=== PATIENT | female | born 1965 | race African-American/Black ===

== ENCOUNTER 2018-02-10 12:09 | Inpatient (IN) | payer SELFPAY ==
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
[2018-02-10 13:34] LABS: HEMATOCRIT 41.8 % (32.4-45.2); HEMOGLOBIN 13.5 GM/dL (10.7-15.3); MCH 27.7 pg (25.7-33.7); MCHC 32.3 g/dl (32.0-36.0); MEAN CELL VOLUME 85.7 fl (80-96); MEAN PLT VOLUME 9.8 fl (7.5-11.1); PLATELET COUNT 176 K/MM3 (134-434); RBC 4.88 M/mm3 (3.60-5.2); RDW 15.9 % (11.6-15.6); WHITE BLOOD COUNT 11.7 K/mm3 (4.0-10.0)
[2018-02-10 13:38] LABS: URINE APPEARANCE CLEAR; URINE BILIRUBIN NEGATIVE (<2.0 mg/dL); URINE COLOR LTYELLOW; URINE GLUCOSE (UA) NEGATIVE (NEGATIVE); URINE KETONE NEGATIVE (NEGATIVE); URINE LEUK ESTERASE NEGATIVE (NEGATIVE); URINE NITRITE NEGATIVE (NEGATIVE); URINE PROTEIN NEGATIVE (NEGATIVE); URINE UROBILINOGEN NEGATIVE mg/dL (0.2-1.0)
[2018-02-10 14:06] LABS: ALBUMIN 3.8 g/dl (3.4-5.0); ALK PHOS 80 U/L (45-117); ANION GAP 6 (8-16); BILIRUBIN,TOTAL 0.4 mg/dL (0.2-1.0); BLOOD UREA NITROGEN 22 mg/dL (7-18); CALCIUM 8.8 mg/dL (8.5-10.1); CHLORIDE 103 mmol/L (98-107); CO2 28 mmol/L (21-32); CREATININE 0.7 mg/dL (0.55-1.02); GLUCOSE,RANDOM 141 mg/dL (74-106); LIPASE 92 U/L (73-393); POTASSIUM 3.9 mmol/L (3.5-5.1); SGOT/AST 23 U/L (15-37); SGPT/ALT 34 U/L (12-78); SODIUM 137 mmol/L (136-145); TOT PROT 7.8 g/dl (6.4-8.2)
[2018-02-10] MEDS ORDERED: ACETAMINOPHEN 1000 MG/100 ML VIAL (NON FORMULARY) IVPB ONE (14:32)
[2018-02-10] MEDS ORDERED: MAGNESIUM CITRATE 300 ML BOTTLE PO ONE (14:33)
[2018-02-10] MEDS ORDERED: ACETAMINOPHEN INJECTION 100 ML IVPB ONE ×2 (14:38→15:39)
[2018-02-10] MEDS ORDERED: MAGNESIUM CITRATE 300 ML BOTTLE ONE (14:39)
--- NOTE | 2018-02-10 16:36 | PDOC ---
Attending Attestation - Resident Resident Name: EdilbertoBarron - ED Attending Attestation I have performed the following: I have examined & evaluated the patient, The case was reviewed & discussed with the resident, I agree w/resident's findings & plan, Exceptions are as noted - HPI HPI: 02/10/18 17:10 52 F with chronic lower back pain on opiate pain meds presenting with constipation and lower abdominal pain x several days. Pt reports constant pain radiating from her lower abdomen to her L flank. Denies F/C. Endorses nausea without vomiting. Last BM was about 3 days ago. Pt denies dysuria or hematuria. No prior abdominal sugeries. - Physicial Exam PE: 02/10/18 17:11 "GENERAL: Awake, alert, and fully oriented, in no acute distress. HEAD: No signs of trauma EYES: PERRLA, EOMI, sclera anicteric, conjunctiva clear ENT: Auricles normal inspection, hearing grossly normal, nares patent, oropharynx clear without exudates. Moist mucosa NECK: Nontender, no stepoffs, Normal ROM, supple, no lymphadenopathy, JVD, or masses LUNGS: Breath sounds equal, clear to auscultation bilaterally. No wheezes, and no crackles HEART: Regular rate and rhythm, normal S1 and S2, no murmurs, rubs or gallops ABDOMEN: + LLQ tenderness, + L CVAT, normoactive bowel sounds. No guarding, no rebound. No masses EXTREMITIES: Normal range of motion, no edema. No clubbing or cyanosis. No cords, erythema, or tenderness NEUROLOGICAL: Cranial nerves II through XII intact. 5/5 strength and sensation in all extremities, Normal speech, normal gait, normal cerebellar function SKIN: Warm, Dry, normal turgor, no rashes or lesions noted. " - Medical Decision Making 02/10/18 17:11 52 F with LLQ pain, likely constipation related. Also with L CVAT. Will r/o pyelo. - Labs, UA, UCx - CTAP - IVF, pain control, mag citrate 02/10/18 18:02 Labs and UA wnl CT shows severe L hydroureteronephrosis with forniceal rupture. No stone visualized on CT. I suspect that pt's constipation and stool burden may be cause of ureteral obstruction. Pt also has leiomyomatous uterus. Urology Dr. Penaloza consulted. No surgical intervention at this time. Will admit to hospitalist.
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
[2018-02-10] MEDS ORDERED: DOCUSATE SODIUM 100 MG CAPSULE (FP) PO PRN (20:14)
[2018-02-10] MEDS ORDERED: SENNOSIDES 8.6MG TABLET (FP) PO PRN (20:14)
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
[2018-02-10] MEDS ORDERED: traMADol HCL 50 MG TABLET PO PRN (20:19)
[2018-02-10] MEDS: POLYETHYLENE GLYCOL 3350 119 GM BTL PO SCH (22:23)
[2018-02-10] MEDS: KETOROLAC TROMETHAMINE 15 MG/ML VIAL IVPUSH PRN (22:24)
[2018-02-11] MEDS: HEPARIN NA (PORCINE) 5,000 UNITS/ML 1ML VIAL SQ SCH ×3 (05:59→22:09)
[2018-02-11] MEDS: ACETAMINOPHEN 325 MG TABLET (FP) PO PRN ×2 (05:59→18:18)
[2018-02-11 07:45] LABS: ALBUMIN 3.2 g/dl (3.4-5.0); ANION GAP 7 (8-16); BLOOD UREA NITROGEN 17 mg/dL (7-18); CALCIUM 8.7 mg/dL (8.5-10.1); CHLORIDE 102 mmol/L (98-107); CO2 30 mmol/L (21-32); GLUCOSE,RANDOM 126 mg/dL (74-106); POTASSIUM 4.2 mmol/L (3.5-5.1); SGPT/ALT 32 U/L (12-78); SODIUM 139 mmol/L (136-145)
[2018-02-11 07:48] LABS: ALK PHOS 77 U/L (45-117); BILIRUBIN,TOTAL 0.5 mg/dL (0.2-1.0); CREATININE 0.7 mg/dL (0.55-1.02); SGOT/AST 23 U/L (15-37); TOT PROT 7.3 g/dl (6.4-8.2)
[2018-02-11 08:08] LABS: BASO % 0.2 % (0-2.0); HEMOGLOBIN 13.7 GM/dL (10.7-15.3); LYMPH % 4.4 % (8-40); MCHC 33.3 g/dl (32.0-36.0); MEAN CELL VOLUME 84.1 fl (80-96); MEAN PLT VOLUME 10.1 fl (7.5-11.1); MONO % 5.1 % (3.8-10.2); NEUT % 90.3 % (42.8-82.8); PLATELET COUNT 192 K/MM3 (134-434); RBC 4.88 M/mm3 (3.60-5.2); RDW 15.3 % (11.6-15.6); WHITE BLOOD COUNT 12.3 K/mm3 (4.0-10.0)
--- NOTE | 2018-02-11 08:49 | EKG ---
Test Reason : Blood Pressure : / mmHG Vent. Rate : 078 BPM Atrial Rate : 078 BPM P-R Int : 196 ms QRS Dur : 086 ms QT Int : 404 ms P-R-T Axes : 075 032 056 degrees QTc Int : 460 ms NORMAL SINUS RHYTHM RIGHT ATRIAL ENLARGEMENT NONSPECIFIC T WAVE ABNORMALITY PROLONGED QT ABNORMAL ECG NO PREVIOUS ECGS AVAILABLE Confirmed by GABRIEL JOSEPH MD ([id number]) on 02/11/2018 8:49:20 AM Referred By: Confirmed By:GABRIEL JOSEPH MD
[2018-02-11] MEDS ORDERED: DEXTROSE 5%-WATER 100 ML IVPB ONE (09:06)
[2018-02-11] MEDS: POLYETHYLENE GLYCOL 3350 119 GM BTL PO SCH (09:34)
[2018-02-11 09:38] LABS: INR 1.18 (0.82-1.09); PROTHROMBIN TIME (PATIENT) 13.3 SEC (9.7-13.0)
[2018-02-11 09:40] LABS: ACTIVATED PTT 30.3 SECONDS (26.9-34.4)
--- NOTE | 2018-02-11 09:48 | PN ---
<Christina Hawkins - Last Filed: 02/11/18 17:48> Physical Exam: SUBJECTIVE: Patient seen and examined at bedside. Pt states that after admission , had multiple BM's, relieving constipation. Currently, only c/o thirst and abdominal pain. Denies BARRIGA, fever, chills, SOB, or changes in urinary function. OBJECTIVE: Vital Signs Period Temp Pulse Resp BP Sys/Roland Pulse Ox Last 24 Hr 97.4 F-99.8 F 70-100 18-22 115-143/58-98 97-98 GENERAL: The patient is resting in bed. awake, alert, and fully oriented, in no acute distress. HEAD: Normal with no signs of trauma. EYES: PERRL, extraocular movements intact, sclera anicteric, conjunctiva clear. ENT: Ears normal, nares patent, oropharynx clear without exudates, moist mucous membranes. NECK: Trachea midline, supple. LUNGS: Breath sounds equal, clear to auscultation bilaterally, no wheezes, no crackles, no accessory muscle use. HEART: Regular rate and rhythm, S1, S2 without murmur, rub or gallop. ABDOMEN: Soft, obese, diffusely TTP in epigastrium, lower quadrants. normoactive bowel sounds, no guarding. +scar LLQ EXTREMITIES: 2+ pt pulses, well-perfused, no edema. NEUROLOGICAL: Cranial nerves II through XII grossly intact. Normal speech PSYCH: Normal mood, normal affect. SKIN: Warm, dry Laboratory Tests 02/11/18 02/11/18 02/11/18 06:30 06:30 06:30 WBC 12.3 H Hgb 13.7 Hct 41.0 Plt Count 192 Sodium 139 Potassium 4.2 Chloride 102 Carbon Dioxide 30 BUN 17 Creatinine 0.7 Hemoglobin A1c % Pending Active Medications Generic Name Dose Route Start Last Admin Trade Name Freq PRN Reason Stop Dose Admin Acetaminophen 650 mg 02/10/18 20:14 02/11/18 05:59 Tylenol - PO 650 mg Q4H PRN Administration FEVER Docusate Sodium 100 mg 02/10/18 20:14 Colace - PO BID PRN CONSTIPATION Heparin Sodium (Porcine) 5,000 unit 02/11/18 06:00 02/11/18 05:59 Heparin - SQ Not Given TID BEATRICE Ceftriaxone Sodium 2 gm/ 100 mls @ 100 mls/hr 02/11/18 10:00 02/11/18 09:35 Dextrose IVPB 100 mls/hr DAILY BEATRICE Administration Protocol Ketorolac Tromethamine 15 mg 02/10/18 20:14 02/10/18 22:24 Toradol Injection - IVPUSH 02/15/18 20:13 15 mg Q6H PRN Administration PAIN LEVEL 1-5 Polyethylene Glycol 17 gm 02/10/18 20:45 02/11/18 09:34 Miralax (For Daily Use) - PO Not Given DAILY BEATRICE Senna 2 tab 02/10/18 20:14 Senna - PO HS PRN CONSTIPATION Tramadol HCl 50 mg 02/10/18 20:19 Ultram - PO Q6H PRN PAIN LEVEL 6-10 Imaging 02/10/18: Abdomen flat and upright XR: constipation. no sign of free air, organomegaly, or upper abdominal calcifications of significance. the lung bases are well-aerated. there is a large heart with some prominent central vascular markings. there is a left pelvic phlebolith, L buttock granulomata and patent SI joints. the hips appear symmetrical. there is a contracted urine filled bladder and prominent uterine silhouette. 02/10/18: CTAP w/contrast: 1. moderate to severe L hydroureteronephrosis with delayed nephrogram, forniceal rupture and moderate pararenal fluid. No ureteral or urinary bladder calculus is identified 02/10/18: Transvaginal US: uterus in size 9.6x6.6x6.8cm. there are multiple small uterine masses consistent with leiomyomata. the largest fibroid measures 4.7 x 4.3 x 4.4cm and is located medially. a normal appearing endomerium of 3mm thickness is identified. the R ovary is normal in size and texture with arterial and venous flow documented to the ovary. there is a small cyst measuring 2.7 x 2.3x1.8 cm. the L ovary could not be identified. there is no evidence of adnexal masses or free pelvic fluid collections. 02/10/18: Kidney, bladder sono: 1. mild left sided hydronpehrosis. 2. perinephric fluid suggesting forniceal rupture. clinical correlation and follow- up recommended. EKG: NSR, right atrial enlargement, non-specific T wave abnormality, QTc of 460 ASSESSMENT/PLAN: 52F w/ hx of pre-DM who presents with worsening lower back pain. #worsening LBP likely 2/2 L hydroureteronephrosis, forniceal rupture vs. leiomyomatous uterus -bowel distension improved, with multiple BM's overnight . no longer constipated -s/p L nephrostomy tube- done today. Dr. Penaloza -ROUGHENER consult: Dr. Domínguez, message left with service -continue to monitor s/p tube placement. this evening with fever, tachy - cx drawn, IV tylenolx 1 given. -pain control: tramadol 50mg PO q6h PRN, toradol 15mg IVP q6h -Tylenol 650mg PO q4h PRN for fever #constipation-resolved -senna 2tab PO HS PRN -colace 100mg PO BID PRN -has resolved #R adnexal cyst/leiomyomatous uterus -ROUGHENER consult- Dr. Domínguez -call placed to service, message left. -likely caused obsructive, reflux uropathy #pre-diabetes/obesity -A1c 6.4% -nutrition consult #F/E/N -IV NS 100 cc/hr -continue to follow lytes -NPO , adv diet as tolerates #PPX -heparin 5000U TID #Dispo continued monitoring post-nephrostomy tube Visit type - Emergency Visit Emergency Visit: No - New Patient This patient is new to me today: Yes Date on this admission: 02/11/18 - Critical Care Critical Care patient: No <Lu Reyes - Last Filed: 02/11/18 18:02> Physical Exam: Patient is s/p left nephrostomy tube done by IR, urology was consulted
[2018-02-11] MEDS ORDERED: PATIENT'S OWN MEDICATION (NON-FORMULARY) (Glucosamine/Chondr Su A Sod [Osteo Bi-Flex Caple PO SCH (10:00)
[2018-02-11] MEDS ORDERED: CEFTRIAXONE 2 GM in DEXTROSE 5%-WATER 100 ML IVPB SCH (10:00)
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
[2018-02-11] MEDS ORDERED: SODIUM CHLORIDE 1,000 ML IV SCH ×3 (12:30→22:13)
[2018-02-11] MEDS: KETOROLAC TROMETHAMINE 15 MG/ML VIAL IVPUSH PRN (13:46)
[2018-02-11] MEDS ORDERED: ACETAMINOPHEN 1000 MG/100 ML VIAL (NON FORMULARY) IVPB ONE (17:30)
--- NOTE | 2018-02-11 18:42 | PN ---
Progress Note (short form) - Note Progress Note: Called to see a 52F w/ hx of pre-DM s/p nephrostomy this evening who became altered, shivering with a rectal temperature of 102.8 Pt had been on ceftriaxone prior to procedure and received levaquin intra-op. Pt got local anesthesia. She came on to floors and started shivering, Pt had been NPO prior to the procedure and started to receive IV fluids prior. No hx of fall or syncope. Initial vitals: 102.8, BP- 152/75mmHg, HR-110 sating on RA Blood glucose 127 Iv tylenol was ordered (Prior to pt receiving the tylenol, she pulled out her iv line and was putting her feet in the sink). She kept c/o about being thirsty and received ice chips, and said she had a headache and dizziness that was improving Pt shown to desat to 86% and was placed on NC-2L oxygen and began to sat at 95% PE: Vitals- Tmax-105 (rectal), BP sitting- 75/38, HR-134, repeat 104/39, HR-134 Gen: Obese female, restless, on NC-2L Neuro: AAOx3, able to move all limbs, no facial droop CVS: tachycardic, S1, S2, Chest: Clear to auscultation Bilat Abd: Obese, no areas of tenderness Nephrostomy tube in place draining pink colored fluid Extremities: no pedal edema Assessment: 52F w/ hx of pre-DM now s/p nephrostomy and became altered, shivering with a rectal temperature of 102.8 #Severe sepsis post nephrostomy tube insertion R/O pyelonephritis Sepsis work up stat Iv tylenol 1000g stat Bolus Iv Normal saline stat Vital signs [id number] D/W Dr Leon, who D/W Dr Reyes For ICU transfer- Dr Leon D/ W Dr Car and Pt has been accepted Iv zosyn Monitor
[2018-02-11] MEDS ORDERED: PIPERACILLIN/TAZOB 3.375 GM 3.375 GM in DEXTROSE 5%-WATER - 50 ML IVPB SCH ×2 (19:00→20:15)
[2018-02-11] MEDS ORDERED: VANCOMYCIN 1,000 MG in DEXTROSE 5%-WATER - 250 ML IVPB SCH (19:00)
--- NOTE | 2018-02-11 19:04 | HOSP ---
Subjective - Review of Symptoms Events since last encounter: Patient is accepted to the unit By Dr.Ricard Ni. Physical Examination Vital Signs: Vital Signs Temperature 97.9 F 02/11/18 16:35 Pulse Rate 98 H 02/11/18 16:35 Respiratory Rate 20 02/11/18 16:35 Blood Pressure 146/91 02/11/18 16:35 O2 Sat by Pulse Oximetry (%) 100 02/11/18 16:00 Labs: CBC, BMP 02/11/18 06:30 02/11/18 06:30
[2018-02-11 19:19] LABS: HEMOGLOBIN 12.6 GM/dL (10.7-15.3); MCHC 32.8 g/dl (32.0-36.0)
[2018-02-11 19:23] LABS: EOS % 0.2 % (0-4.5); HEMATOCRIT 38.6 % (32.4-45.2); LYMPH % 2.5 % (8-40); MCH 27.9 pg (25.7-33.7); MEAN CELL VOLUME 85.1 fl (80-96); MEAN PLT VOLUME 9.9 fl (7.5-11.1); MONO % 2.4 % (3.8-10.2); NEUT % 94.9 % (42.8-82.8); PLATELET COUNT 150 K/MM3 (134-434); RBC 4.53 M/mm3 (3.60-5.2); RDW 15.9 % (11.6-15.6); WHITE BLOOD COUNT 5.8 K/mm3 (4.0-10.0)
[2018-02-11] MEDS ORDERED: VANCOMYCIN 1 GM PREMIX - 1 GM/200 ML BAG IVPB ONE (19:30)
[2018-02-11 19:38] LABS: INR 1.38 (0.82-1.09); PROTHROMBIN TIME (PATIENT) 15.6 SEC (9.7-13.0)
[2018-02-11 19:41] LABS: ACTIVATED PTT 27.3 SECONDS (26.9-34.4)
[2018-02-11 19:52] LABS: PLATELET ESTIMATE DECREASED
[2018-02-11 20:04] LABS: ALBUMIN 2.9 g/dl (3.4-5.0); ANION GAP 10 (8-16); CHLORIDE 104 mmol/L (98-107); CO2 24 mmol/L (21-32); GLUCOSE,RANDOM 111 mg/dL (74-106); POTASSIUM 3.8 mmol/L (3.5-5.1); SODIUM 138 mmol/L (136-145)
[2018-02-11] MEDS ORDERED: SODIUM CHLORIDE 1,000 ML IV STA (20:12)
[2018-02-11] MEDS ORDERED: PIPERACILLIN/TAZOBACTAM 3.375 GM VIAL IVPB ONE (20:14)
[2018-02-11] MEDS ORDERED: DEXTROSE 5%-WATER - 50 ML IVPB ONE (20:14)
[2018-02-11 20:33] LABS: ALK PHOS 102 U/L (45-117); BILIRUBIN,TOTAL 0.8 mg/dL (0.2-1.0); BLOOD UREA NITROGEN 24 mg/dL (7-18); CALCIUM 8.3 mg/dL (8.5-10.1); SGOT/AST 24 U/L (15-37); SGPT/ALT 28 U/L (12-78); TOT PROT 6.7 g/dl (6.4-8.2)
[2018-02-11] MEDS: MEROPENEM 1 GM in DEXTROSE 5%-WATER 100 ML IVPB SCH (20:35)
[2018-02-11 21:02] LABS: ARTERIAL BLOOD GAS pH 7.45 (7.35-7.45)
[2018-02-11 21:03] LABS: ALLENS TEST POSITIVE; ARTERIAL BLD GAS O2 SATURATION 96.3 % (90-98.9); ARTERIAL BLOOD GAS BASE EXCESS 1.5 meq/l (-2-2); ARTERIAL BLOOD GAS PCO2 35.7 mmHg (35-45); ARTERIAL BLOOD GAS PO2 82.2 mmHg (80-100)
[2018-02-11 21:09] LABS: URINE APPEARANCE TURBID; URINE BILIRUBIN NEGATIVE (<2.0 mg/dL); URINE COLOR AMBER; URINE GLUCOSE (UA) 1+ (NEGATIVE); URINE KETONE TRACE (NEGATIVE); URINE NITRITE NEGATIVE (NEGATIVE); URINE UROBILINOGEN NEGATIVE mg/dL (0.2-1.0)
[2018-02-11 21:12] LABS: URINE LEUK ESTERASE 2+ (NEGATIVE); URINE PROTEIN 2+ (NEGATIVE)
[2018-02-11 21:13] LABS: URINE MUCUS RARE; YEAST FEW
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
[2018-02-11] MEDS ORDERED: ACETAMINOPHEN 1000 MG/100 ML VIAL (NON FORMULARY) IVPB PRN (21:20)
[2018-02-11] MEDS: LACTATED RINGERS SOLUTION 1,000 ML/1,000 ML INFUS.BAG IV SCH (22:03)
[2018-02-11] MEDS: MUPIROCIN 2% TOPICAL OINTMENT FOR DECOLONIZATION NS SCH (22:09)
[2018-02-11] MEDS: CHLORHEXIDINE GLUCONATE 4% CLEANSER FOR DECOLONIZATION TP SCH (22:10)
[2018-02-12] MEDS: MEROPENEM 1 GM in DEXTROSE 5%-WATER 100 ML IVPB SCH ×3 (01:11→17:40)
[2018-02-12] MEDS: HYDROmorphone HCL CARPU-JECT 1 MG/1 ML DISP.SYRIN IVPUSH PRN ×3 (01:27→21:49)
[2018-02-12] MEDS ORDERED: PIPERACILLIN/TAZOB 3.375 GM 3.375 GM in DEXTROSE 5%-WATER - 50 ML IVPB SCH (02:00)
--- NOTE | 2018-02-12 05:51 | PN ---
Physical Exam: SUBJECTIVE: Patient seen and examined at bed side in ICU Fever is trending down 100.1 this morning , no hypotension. pt still have left flank pain improved with Tylenol complain of constipation but denies any chest pain , sob , headache or light headedness. POD#1 S/P left nephrostomy with stent placement OBJECTIVE: Vital Signs Period Temp Pulse Resp BP Sys/Roland Pulse Ox Last 24 Hr 97.9 F-105.5 F 71-134 2-29 78-153/36-91 93-100 GENERAL: AAOx3 n mild distress due to left flank pain HEAD: NC/AT EYES: PERRL, EOMI sclera anicteric, conjunctiva clear. ENT:MMM, no exudates NECK: supple. LUNGS: Tachypnech , CTA B/L no wheezes, no crackles, no accessory muscle use. HEART: RRR, S1, S2 without MRG ABDOMEN: Soft, nondistended, normoactive bowel sounds, no guarding, no rebound,left CVA tenderness EXTREMITIES: 2+ pulses, warm, well-perfused, no edema. NEUROLOGICAL:no focal deficit . Normal speech, gait not observed. PSYCH: Normal mood, normal affect. SKIN: Warm, dry, normal turgor, Laboratory Results - last 24 hr 02/11/18 02/11/18 02/11/18 06:30 06:30 06:30 WBC 12.3 H RBC 4.88 Hgb 13.7 Hct 41.0 MCV 84.1 MCH 28.0 MCHC 33.3 RDW 15.3 Plt Count 192 MPV 10.1 Absolute Neuts (auto) 11.1 Total Counted Neutrophils % 90.3 H Neutrophils % (Manual) Band Neutrophils % Lymphocytes % 4.4 L Lymphocytes % (Manual) Monocytes % 5.1 Monocytes % (Manual) Eosinophils % 0.0 Basophils % 0.2 Nucleated RBC % 0 Platelet Estimate Platelet Comment PT with INR 13.30 H INR 1.18 H PTT (Actin FS) 30.3 Anticoagulation Therapy Puncture Site ABG pH ABG pCO2 at Pt Temp ABG pO2 at Pt Temp ABG HCO3 ABG O2 Sat (Measured) ABG O2 Content ABG Base Excess Bishnu Test O2 Delivery Device Oxygen Flow Rate Vent Mode Vent Rate Mechanical Rate PEEP Pressure Support Vent Sodium 139 Potassium 4.2 Chloride 102 Carbon Dioxide 30 Anion Gap 7 L BUN 17 Creatinine 0.7 Creat Clearance w eGFR > 60 POC Glucometer Random Glucose 126 H Hemoglobin A1c % Lactic Acid Calcium 8.7 Total Bilirubin 0.5 D AST 23 ALT 32 Alkaline Phosphatase 77 Total Protein 7.3 Albumin 3.2 L Urine Color Urine Appearance Urine pH Ur Specific Cecil Urine Protein Urine Glucose (UA) Urine Ketones Urine Blood Urine Nitrite Urine Bilirubin Urine Urobilinogen Ur Leukocyte Esterase Urine WBC (Auto) Urine RBC (Auto) Urine Mucus Urine Yeast Blood Type Antibody Screen 02/11/18 02/11/18 02/11/18 06:30 06:30 08:56 WBC RBC Hgb Hct MCV MCH MCHC RDW Plt Count MPV Absolute Neuts (auto) Total Counted Neutrophils % Neutrophils % (Manual) Band Neutrophils % Lymphocytes % Lymphocytes % (Manual) Monocytes % Monocytes % (Manual) Eosinophils % Basophils % Nucleated RBC % Platelet Estimate Platelet Comment PT with INR INR PTT (Actin FS) Anticoagulation Therapy Puncture Site ABG pH ABG pCO2 at Pt Temp ABG pO2 at Pt Temp ABG HCO3 ABG O2 Sat (Measured) ABG O2 Content ABG Base Excess Bishnu Test O2 Delivery Device Oxygen Flow Rate Vent Mode Vent Rate Mechanical Rate PEEP Pressure Support Vent Sodium Potassium Chloride Carbon Dioxide Anion Gap BUN Creatinine Creat Clearance w eGFR POC Glucometer Random Glucose Hemoglobin A1c % 6.4 H Lactic Acid Calcium Total Bilirubin AST ALT Alkaline Phosphatase Total Protein Albumin Urine Color Urine Appearance Urine pH Ur Specific Cecil Urine Protein Urine Glucose (UA) Urine Ketones Urine Blood Urine Nitrite Urine Bilirubin Urine Urobilinogen Ur Leukocyte Esterase Urine WBC (Auto) Urine RBC (Auto) Urine Mucus Urine Yeast Blood Type O POSITIVE O POSITIVE Antibody Screen Negative 02/11/18 02/11/18 02/11/18 17:56 18:00 18:00 WBC 5.8 D RBC 4.53 Hgb 12.6 Hct 38.6 MCV 85.1 MCH 27.9 MCHC 32.8 RDW 15.9 H Plt Count 150 D MPV 9.9 Absolute Neuts (auto) 5.6 Total Counted 100 Neutrophils % 94.9 H Neutrophils % (Manual) 79.0 Band Neutrophils % 17.0 Lymphocytes % 2.5 L D Lymphocytes % (Manual) 3.0 L Monocytes % 2.4 L Monocytes % (Manual) 1 L Eosinophils % 0.2 D Basophils % 0.0 Nucleated RBC % 0 Platelet Estimate Decreased Platelet Comment No clumping noted PT with INR 15.60 H INR 1.38 H PTT (Actin FS) 27.3 Anticoagulation Therapy Puncture Site ABG pH ABG pCO2 at Pt Temp ABG pO2 at Pt Temp ABG HCO3 ABG O2 Sat (Measured) ABG O2 Content ABG Base Excess Bishnu Test O2 Delivery Device Oxygen Flow Rate Vent Mode Vent Rate Mechanical Rate PEEP Pressure Support Vent Sodium Potassium Chloride Carbon Dioxide Anion Gap BUN Creatinine Creat Clearance w eGFR POC Glucometer 127 Random Glucose Hemoglobin A1c % Lactic Acid Calcium Total Bilirubin AST ALT Alkaline Phosphatase Total Protein Albumin Urine Color Urine Appearance Urine pH Ur Specific Cecil Urine Protein Urine Glucose (UA) Urine Ketones Urine Blood Urine Nitrite Urine Bilirubin Urine Urobilinogen Ur Leukocyte Esterase Urine WBC (Auto) Urine RBC (Auto) Urine Mucus Urine Yeast Blood Type Antibody Screen 02/11/18 02/11/18 02/11/18 18:00 18:00 18:43 WBC RBC Hgb Hct MCV MCH MCHC RDW Plt Count MPV Absolute Neuts (auto) Total Counted Neutrophils % Neutrophils % (Manual) Band Neutrophils % Lymphocytes % Lymphocytes % (Manual) Monocytes % Monocytes % (Manual) Eosinophils % Basophils % Nucleated RBC % Platelet Estimate Platelet Comment PT with INR INR PTT (Actin FS) Anticoagulation Therapy No Result Required. Puncture Site Left brachial ABG pH 7.45 ABG pCO2 at Pt Temp 35.7 ABG pO2 at Pt Temp 82.2 ABG HCO3 24.7 ABG O2 Sat (Measured) 96.3 ABG O2 Content 16.8 ABG Base Excess 1.5 Bishnu Test Positive O2 Delivery Device Nasal Oxygen Flow Rate 3l Vent Mode No Result Required. Vent Rate No Result Required. Mechanical Rate No Result Required. PEEP 0.0 Pressure Support Vent No Result Required. Sodium 138 Potassium 3.8 Chloride 104 Carbon Dioxide 24 Anion Gap 10 BUN 24 H Creatinine 1.0 Creat Clearance w eGFR 58.00 POC Glucometer Random Glucose 111 H Hemoglobin A1c % Lactic Acid 2.6 H* Calcium 8.3 L Total Bilirubin 0.8 D AST 24 ALT 28 Alkaline Phosphatase 102 Total Protein 6.7 Albumin 2.9 L Urine Color Urine Appearance Urine pH Ur Specific Cecil Urine Protein Urine Glucose (UA) Urine Ketones Urine Blood Urine Nitrite Urine Bilirubin Urine Urobilinogen Ur Leukocyte Esterase Urine WBC (Auto) Urine RBC (Auto) Urine Mucus Urine Yeast Blood Type Antibody Screen 02/11/18 02/11/18 20:00 20:30 WBC RBC Hgb Hct MCV MCH MCHC RDW Plt Count MPV Absolute Neuts (auto) Total Counted Neutrophils % Neutrophils % (Manual) Band Neutrophils % Lymphocytes % Lymphocytes % (Manual) Monocytes % Monocytes % (Manual) Eosinophils % Basophils % Nucleated RBC % Platelet Estimate Platelet Comment PT with INR INR PTT (Actin FS) Anticoagulation Therapy Puncture Site ABG pH ABG pCO2 at Pt Temp ABG pO2 at Pt Temp ABG HCO3 ABG O2 Sat (Measured) ABG O2 Content ABG Base Excess Bishnu Test O2 Delivery Device Oxygen Flow Rate Vent Mode Vent Rate Mechanical Rate PEEP Pressure Support Vent Sodium Potassium Chloride Carbon Dioxide Anion Gap BUN Creatinine Creat Clearance w eGFR POC Glucometer Random Glucose Hemoglobin A1c % Lactic Acid 1.9 Calcium Total Bilirubin AST ALT Alkaline Phosphatase Total Protein Albumin Urine Color Rae Urine Appearance Turbid Urine pH 5.0 Ur Specific Cecil 1.033 Urine Protein 2+ H Urine Glucose (UA) 1+ H Urine Ketones Trace H Urine Blood 3+ H Urine Nitrite Negative Urine Bilirubin Negative Urine Urobilinogen Negative Ur Leukocyte Esterase 2+ H Urine WBC (Auto) 3010 Urine RBC (Auto) 1190 Urine Mucus Rare Urine Yeast Few Blood Type Antibody Screen Active Medications Generic Name Dose Route Start Last Admin Trade Name Freq PRN Reason Stop Dose Admin Acetaminophen 1,000 mg 02/11/18 21:20 Ofirmev Injection - IVPB Q6H PRN FEVER Chlorhexidine Gluconate 1 applic 02/11/18 22:00 02/11/18 22:10 Hibiclens For Decolonization - TP 1 applic HS BEATRICE Administration Heparin Sodium (Porcine) 5,000 unit 02/12/18 06:00 Heparin - SQ TID BEATRICE Hydromorphone HCl 1 mg 02/12/18 01:09 02/12/18 01:27 Dilaudid Injection - IVPUSH 1 mg Q8H PRN Administration PAIN LEVEL 7 - 10 Meropenem 1 gm/ Dextrose 100 mls @ 200 mls/hr 02/12/18 10:00 IVPB Q8H-IV BEATRICE Lactated Ringer's 1,000 ml in 1,000 mls @ 150 mls/hr 02/11/18 21:15 02/11/18 22:03 Lactated Ringers Solution IV 150 mls/hr ASDIR BEATRICE Administration Sodium Chloride 1,000 mls @ 200 mls/hr 02/11/18 22:13 Normal Saline - IV ASDIR BEATRICE Vancomycin HCl 1 gm in 200 mls @ 166.667 mls/hr 02/12/18 07:00 Vancomycin 1 Gm Premix - IVPB Q12H COUNTS INCLUDE 234 BEDS AT THE [facility] Protocol Mupirocin 1 applic 02/11/18 22:00 02/11/18 22:09 Bactroban Ointment (For Decolonization) - NS 02/16/18 21:59 1 applic BID BEATRICE Administration Microbiology 02/12/18: Urine nephrostomy tube L: UCx -pending 02/11/18: Blood cx: pending 02/11/18: Urine nephrostomy tube L: UCx - pending Imaging 02/10/18: Abdomen flat and upright XR: constipation. no sign of free air, organomegaly, or upper abdominal calcifications of significance. the lung bases are well-aerated. there is a large heart with some prominent central vascular markings. there is a left pelvic phlebolith, L buttock granulomata and patent SI joints. the hips appear symmetrical. there is a contracted urine filled bladder and prominent uterine silhouette. 02/10/18: CTAP w/contrast: 1. moderate to severe L hydroureteronephrosis with delayed nephrogram, forniceal rupture and moderate pararenal fluid. No ureteral or urinary bladder calculus is identified 02/10/18: Transvaginal US: uterus in size 9.6x6.6x6.8cm. there are multiple small uterine masses consistent with leiomyomata. the largest fibroid measures 4.7 x 4.3 x 4.4cm and is located medially. a normal appearing endomerium of 3mm thickness is identified. the R ovary is normal in size and texture with arterial and venous flow documented to the ovary. there is a small cyst measuring 2.7 x 2.3x1.8 cm. the L ovary could not be identified. there is no evidence of adnexal masses or free pelvic fluid collections. 02/10/18: Kidney, bladder sono: 1. mild left sided hydronpehrosis. 2. perinephric fluid suggesting forniceal rupture. clinical correlation and follow- up recommended. EKG: NSR, right atrial enlargement, non-specific T wave abnormality, QTc of 460 CBC, BMP 02/12/18 06:00 02/12/18 06:00 ASSESSMENT/PLAN: 52 year old female with pre deiabetic presented to the ED for left flank pain and was found to have left hydronephrosis with left ureteral obstruction and uterine fibroid , S/P left nephrostomy and was admitte to ICU for further evaluation and treatement ID -Urosepsis due to complicated UTI * presented with fever , hypotension and tachycardia * fever is trending down , BP has improved with IV fluids , still tachycardic , tachypnech * S/P Left nephrostomy with stent placement * ID on board Dr Corral recommend continue Meropenem and DC Vancomycin * Cont IV fluids NS and RL * PO Tylenol for pain and fever * Diluded IV 1 mg Q8hr PRN * F/U blood cx and urine cx Nephro - Left kidney hydonephrosis with left ureter obstruction due to uterus leiomyomata (fibroid ) S/O Nephrostomy with stent placemnet * US showed left hydronephrosis with capsule ruptured and casey renal edema * POD# 1 * Continue IV fluids * pain control * anti emetics * cont ABX as above * Urologist recommendation Dr Fernández is appreciated # GI - Constipation * last BP 3 days ago * Started Full liquid diet * Started colace and Miralax * encourage early movement * denies any blood or hemorrhoids # 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 - R adnexal cust with Leiomyomata uterus * US reviwed * Consult lead sprinkler Dr Domínguez * F/U as out pt * # Endo - Pre diabetics -Obesity * HgbA1c 6.4 , BMI 36.7 * Diabetic diet * pt educated about modified life style and diet modification * educated about loosing weight with goal of 1 pound per week * consider bariatric consult as out pt #F/E/N * LR 150 cc/hr * continue to follow lytes * full liquid diet, will advance as tolerates #PPX * heparin 5000U TID #Dispo * continued monitoring post-nephrostomy tube Visit type - Emergency Visit Emergency Visit: Yes ED Registration Date: 02/10/18 Care time: The patient presented to the Emergency Department on the above date and was hospitalized for further evaluation of their emergent condition. - New Patient This patient is new to me today: Yes Date on this admission: 02/12/18 - Critical Care Critical Care patient: Yes Total Critical Care Time (in minutes): 45 Critical Care Statement: The care of this patient involved high complexity decision making to prevent further life threatening deterioration of the patient 's condition and/or to evaluate & treat vital organ system(s) failure or risk of failure.
[2018-02-12] MEDS: HEPARIN NA (PORCINE) 5,000 UNITS/ML 1ML VIAL SQ SCH ×3 (06:11→21:50)
[2018-02-12 06:15] LABS: BASO % 0.2 % (0-2.0); EOS % 0.5 % (0-4.5); HEMATOCRIT 35.3 % (32.4-45.2); HEMOGLOBIN 11.5 GM/dL (10.7-15.3); LYMPH % 5.5 % (8-40); MCH 27.8 pg (25.7-33.7); MCHC 32.6 g/dl (32.0-36.0); MEAN CELL VOLUME 85.2 fl (80-96); MEAN PLT VOLUME 9.7 fl (7.5-11.1); MONO % 6.5 % (3.8-10.2); NEUT % 87.3 % (42.8-82.8); PLATELET COUNT 124 K/MM3 (134-434); RBC 4.14 M/mm3 (3.60-5.2); WHITE BLOOD COUNT 11.5 K/mm3 (4.0-10.0)
[2018-02-12 06:40] LABS: ANION GAP 5 (8-16); BLOOD UREA NITROGEN 17 mg/dL (7-18); CALCIUM 7.4 mg/dL (8.5-10.1); CHLORIDE 106 mmol/L (98-107); CO2 27 mmol/L (21-32); CREATININE 0.5 mg/dL (0.55-1.02); GLUCOSE,RANDOM 90 mg/dL (74-106); MAGNESIUM 2.2 mg/dL (1.8-2.4); PHOSPHOROUS 2.8 mg/dL (2.5-4.9); POTASSIUM 4.1 mmol/L (3.5-5.1); SODIUM 138 mmol/L (136-145)
[2018-02-12] MEDS ORDERED: VANCOMYCIN 1 GM PREMIX - 1 GM/200 ML BAG IVPB SCH (07:00)
--- NOTE | 2018-02-12 08:58 | PN ---
Physical Exam: SUBJECTIVE: Patient seen and examined at bedside. Yesterday evening, pt became septic after L nephrostomy tube placement. With shivering, tachycardia 110 HR, initial temp 102.8F. Cultures sent. Pt temp increased to 105.4F. IV tylenol x 1 given, NS boluses as well as IVF. Pt received dilaudid as well for pain at nephrostomy site. Today, pt tired. Still c/o pain at nephrostomy site. Otherwise states that she "feels better than yesterday." Denies [place], fever, chills, SOB, chest pain or pressure, or changes in bowel function. OBJECTIVE: Vital Signs Period Temp Pulse Resp BP Sys/Roland Pulse Ox Last 24 Hr 97.9 F-105.5 F 71-134 2-29 78-153/36-91 93-100 GENERAL: The patient is resting in bed. awake, alert, and fully oriented, in no acute distress. +mildly diaphoretic HEAD: Normal with no signs of trauma. EYES: PERRL, extraocular movements intact, sclera anicteric, conjunctiva clear. ENT: Ears normal, nares patent, oropharynx clear without exudates, moist mucous membranes. NECK: Trachea midline, supple. LUNGS: Breath sounds equal, clear to auscultation bilaterally, no wheezes, no crackles, no accessory muscle use. HEART: Regular rate and rhythm, S1, S2 without murmur, rub or gallop. ABDOMEN: Soft, diffusely TTP epigastrium, normoactive bowel sounds, no guarding. +TTP L nephrostomy site, bag changed prior to exam. without drainage. EXTREMITIES: 2+ dp pulses, warm, well-perfused, no edema. NEUROLOGICAL: Cranial nerves II through XII grossly intact. Normal speech PSYCH: Normal mood, normal affect. SKIN: Warm, dry, normal turgor Laboratory Results 02/11/18 02/12/18 02/12/18 06:30 06:00 06:00 WBC 11.5 H D Hgb 11.5 Hct 35.3 Plt Count 124 L Sodium 138 Potassium 4.1 Chloride 106 Carbon Dioxide 27 BUN 17 Creatinine 0.5 L Hemoglobin A1c % 6.4 H Microbiology 02/12/18: Urine nephrostomy tube L: UCx -pending 02/11/18: Blood cx: pending 02/11/18: Urine nephrostomy tube L: UCx - pending Imaging 02/10/18: Abdomen flat and upright XR: constipation. no sign of free air, organomegaly, or upper abdominal calcifications of significance. the lung bases are well-aerated. there is a large heart with some prominent central vascular markings. there is a left pelvic phlebolith, L buttock granulomata and patent SI joints. the hips appear symmetrical. there is a contracted urine filled bladder and prominent uterine silhouette. 02/10/18: CTAP w/contrast: 1. moderate to severe L hydroureteronephrosis with delayed nephrogram, forniceal rupture and moderate pararenal fluid. No ureteral or urinary bladder calculus is identified 02/10/18: Transvaginal US: uterus in size 9.6x6.6x6.8cm. there are multiple small uterine masses consistent with leiomyomata. the largest fibroid measures 4.7 x 4.3 x 4.4cm and is located medially. a normal appearing endomerium of 3mm thickness is identified. the R ovary is normal in size and texture with arterial and venous flow documented to the ovary. there is a small cyst measuring 2.7 x 2.3x1.8 cm. the L ovary could not be identified. there is no evidence of adnexal masses or free pelvic fluid collections. 02/10/18: Kidney, bladder sono: 1. mild left sided hydronpehrosis. 2. perinephric fluid suggesting forniceal rupture. clinical correlation and follow- up recommended. EKG: NSR, right atrial enlargement, non-specific T wave abnormality, QTc of 460 Active Medications Generic Name Dose Route Start Last Admin Trade Name Freq PRN Reason Stop Dose Admin Acetaminophen 1,000 mg 02/11/18 21:20 Ofirmev Injection - IVPB Q6H PRN FEVER Chlorhexidine Gluconate 1 applic 02/11/18 22:00 02/11/18 22:10 Hibiclens For Decolonization - TP 1 applic HS BEATRICE Administration Heparin Sodium (Porcine) 5,000 unit 02/12/18 06:00 02/12/18 06:11 Heparin - SQ 5,000 unit TID BEATRICE Administration Hydromorphone HCl 1 mg 02/12/18 01:09 02/12/18 01:27 Dilaudid Injection - IVPUSH 1 mg Q8H PRN Administration PAIN LEVEL 7 - 10 Meropenem 1 gm/ Dextrose 100 mls @ 200 mls/hr 02/12/18 10:00 IVPB Q8H-IV BEATRICE Lactated Ringer's 1,000 ml in 1,000 mls @ 150 mls/hr 02/11/18 21:15 02/11/18 22:03 Lactated Ringers Solution IV 150 mls/hr ASDIR BEATRICE Administration Vancomycin HCl 1 gm in 200 mls @ 166.667 mls/hr 02/12/18 07:00 02/12/18 06:11 Vancomycin 1 Gm Premix - IVPB 166.667 mls/hr Q12H BEATRICE Administration Protocol Mupirocin 1 applic 02/11/18 22:00 02/11/18 22:09 Bactroban Ointment (For Decolonization) - NS 02/16/18 21:59 1 applic BID BEATRICE Administration ASSESSMENT/PLAN: 52 y/o F w/ PMH of pre-DM who presents with worsening lower back pain. #worsening LBP likely 2/2 L hydroureteronephrosis, forniceal rupture vs. leiomyomatous uterus -s/p L nephrostomy tube- (PO Day1). Dr. Penaloza -AIRCRAFT MAINTENANCE MANAGER consult: Dr. Domínguez, pt will be seen. may need elective procedure as outpatient -continue to monitor s/p tube placement for any acute changes -pain control: dilaudid 1mg IVP q8h PRN -IV Tylenol 1g IVPB q6h PRN - for fever #sepsis s/p nephrostomy tube insertion -may have caused showering, bacteremia d/t instrumentation -continue meropenem 1gm q8h qd (Today is Day1 ) -vanco and rocephin have been d/c -F/u ucx - nephrostomy tube, blood cx -ID on case: Dr. Corral #constipation-resolved -senna 2tab PO HS PRN -colace 100mg PO BID PRN -has resolved #R adnexal cyst/leiomyomatous uterus -AIRCRAFT MAINTENANCE MANAGER consult- Dr. Domínguez -pt will be seen and may need outpatient procedure, or once hemodynamically stable #pre-diabetes/obesity -A1c 6.4% -nutrition consult #F/E/N -LR 150 cc/hr -continue to follow lytes -full liquid diet, will advance as tolerates #PPX -heparin 5000U TID #Dispo continued monitoring post-nephrostomy tube Visit type - Emergency Visit Emergency Visit: No - New Patient This patient is new to me today: No - Critical Care Critical Care patient: Yes Total Critical Care Time (in minutes): 44 Critical Care Statement: The care of this patient involved high complexity decision making to prevent further life threatening deterioration of the patient 's condition and/or to evaluate & treat vital organ system(s) failure or risk of failure.
[2018-02-12] MEDS ORDERED: PT OWN MED DRAWER 7, Y5N ONE ×2 (09:07→16:57)
[2018-02-12] MEDS: MUPIROCIN 2% TOPICAL OINTMENT FOR DECOLONIZATION NS SCH ×2 (09:10→22:00)
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
[2018-02-12 10:32] LABS: ALBUMIN 2.6 g/dl (3.4-5.0)
[2018-02-12] MEDS: LACTATED RINGERS SOLUTION 1,000 ML/1,000 ML INFUS.BAG IV SCH ×3 (10:42→21:58)
--- NOTE | 2018-02-12 11:11 | PN ---
Teaching Attending Note Name of Resident: Brandt Jarrell ATTENDING PHYSICIAN STATEMENT I saw and evaluated the patient. I reviewed the resident's note and discussed the case with the resident. I agree with the resident's findings and plan as documented. SUBJECTIVE: events noted s/p percutaneous nephrostomy placement yesterday she had fever to 105 and rigors and hypotension after the procedure elevated lactic acid transferred to ICU this am, much improved bp is higher with IVF no pain nephrostomy originally with milky urine, now clear d/w hospitalist last night as well OBJECTIVE: Vital Signs Period Temp Pulse Resp BP Sys/Roland Pulse Ox Last 24 Hr 97.9 F-105.5 F 71-134 2-29 78-153/36-91 93-100 cor-rrr lungs clear abd soft,nt +drain with clear urine ext no edema CBC, BMP 02/12/18 06:00 02/12/18 06:00 cultures pending Laboratory Tests 02/11/18 20:30 Ur Leukocyte Esterase 2+ H Urine WBC (Auto) 3010 Urine RBC (Auto) 1190 ASSESSMENT AND PLAN: sepsis secondary to UTI/urinary obstruction left hydronephrosis secondary to obstruction (fibroid uterus) BP improved this am continue meropenem f/u cultures d/c vancomycin over 45 minutes spent in the care of this patient Problem List - Problems (1) Sepsis Code(s): A41.9 - SEPSIS, UNSPECIFIED ORGANISM (2) UTI (urinary tract infection) Code(s): N39.0 - URINARY TRACT INFECTION, SITE NOT SPECIFIED (3) Obstructive uropathy Code(s): N13.9 - OBSTRUCTIVE AND REFLUX UROPATHY, UNSPECIFIED (4) Fibroid uterus Code(s): D25.9 - LEIOMYOMA OF UTERUS, UNSPECIFIED
--- NOTE | 2018-02-12 12:38 | PN ---
Teaching Attending Note Name of Resident: Juan Ng ATTENDING PHYSICIAN STATEMENT I saw and evaluated the patient. I reviewed the resident's note and discussed the case with the resident. I agree with the resident's findings and plan as documented. SUBJECTIVE: Pt seen and examined in the ICU. Fever curve trending down. Blood pressure improving with IVF resuscitation. Still some left flank pain but improving. OBJECTIVE: Vital Signs Period Temp Pulse Resp BP Sys/Roland Pulse Ox Last 24 Hr 97.9 F-105.5 F 71-134 2-29 78-153/36-91 93-100 Intake & Output 02/09/18 02/10/18 02/11/18 02/12/18 23:59 23:59 23:59 23:59 Intake Total 200 0 3212 Output Total 150 375 Balance 200 -150 2837 Weight 107.048 kg 107.048 kg 109.372 kg Gen: mildly tachypneic at rest Heart: RRR Lung: decreased breath sounds at the bases Abd: soft, TTP L flank Ext: no edema CBC, BMP 02/12/18 06:00 02/12/18 06:00 Active Medications Acetaminophen (Ofirmev Injection -) 1,000 mg IVPB Q6H PRN PRN Reason: FEVER Chlorhexidine Gluconate (Hibiclens For Decolonization -) 1 applic TP HS BEATRICE Last Admin: 02/11/18 22:10 Dose: 1 applic Heparin Sodium (Porcine) (Heparin -) 5,000 unit SQ TID BEATRICE Last Admin: 02/12/18 06:11 Dose: 5,000 unit Hydromorphone HCl (Dilaudid Injection -) 1 mg IVPUSH Q8H PRN PRN Reason: PAIN LEVEL 7 - 10 Last Admin: 02/12/18 09:08 Dose: 1 mg Meropenem 1 gm/ Dextrose 100 mls @ 200 mls/hr IVPB Q8H-IV BEATRICE Last Admin: 02/12/18 09:10 Dose: 200 mls/hr Lactated Ringer's (Lactated Ringers Solution) 1,000 ml in 1,000 mls @ 150 mls/ hr IV ASDIR BEATRICE Last Admin: 02/12/18 10:42 Dose: 150 mls/hr Mupirocin (Bactroban Ointment (For Decolonization) -) 1 applic NS BID BEATRICE Stop: 02/16/18 21:59 Last Admin: 02/12/18 09:10 Dose: 1 applic ASSESSMENT AND PLAN: Left Hydroureteronephosis/Pyelonephritis Fibroid Uterus - r/o ureteral obstruction s/p percutaneous nephrostomy placement Severe Sepsis Acute Kidney Injury Lactic Acidosis Thrombocytopenia - continue antibiotics - f/u cultures - IVF - monitor urine output, creatinine - pain control - bone char kiln tender eval - DVT prophylaxis - continue ICU monitoring critical care time spent in reviewing chart, evaluating patient and formulating plan 35 min
--- NOTE | 2018-02-12 13:47 | PN ---
Progress Note (short form) - Note Progress Note: patient's pain had improved after PCN placement. monitor its output. Problem List - Problems (1) Obstructive and reflux uropathy Code(s): N13.9 - OBSTRUCTIVE AND REFLUX UROPATHY, UNSPECIFIED
--- NOTE | 2018-02-12 18:18 | PN ---
Teaching Attending Note Name of Resident: Christina Hawkins ATTENDING PHYSICIAN STATEMENT I saw and evaluated the patient. I reviewed the resident's note and discussed the case with the resident. I agree with the resident's findings and plan as documented. SUBJECTIVE: OBJECTIVE: Vital Signs Temperature 100.7 F H 02/12/18 16:55 Pulse Rate 94 H 02/12/18 17:27 Respiratory Rate 22 02/12/18 17:27 Blood Pressure 115/77 02/12/18 17:27 O2 Sat by Pulse Oximetry (%) 97 02/12/18 14:32 CBCD WBC 11.5 K/mm3 (4.0-10.0) H D 02/12/18 06:00 RBC 4.14 M/mm3 (3.60-5.2) 02/12/18 06:00 Hgb 11.5 GM/dL (10.7-15.3) 02/12/18 06:00 Hct 35.3 % (32.4-45.2) 02/12/18 06:00 MCV 85.2 fl (80-96) 02/12/18 06:00 MCHC 32.6 g/dl (32.0-36.0) 02/12/18 06:00 RDW 16.0 % (11.6-15.6) H 02/12/18 06:00 Plt Count 124 K/MM3 (134-434) L 02/12/18 06:00 MPV 9.7 fl (7.5-11.1) 02/12/18 06:00 CMP Sodium 138 mmol/L (136-145) 02/12/18 06:00 Potassium 4.1 mmol/L (3.5-5.1) 02/12/18 06:00 Chloride 106 mmol/L (98-107) 02/12/18 06:00 Carbon Dioxide 27 mmol/L (21-32) 02/12/18 06:00 Anion Gap 5 (8-16) L 02/12/18 06:00 BUN 17 mg/dL (7-18) 02/12/18 06:00 Creatinine 0.5 mg/dL (0.55-1.02) L 02/12/18 06:00 Creat Clearance w eGFR 58.00 (>60) 02/11/18 18:00 Random Glucose 90 mg/dL (74-106) 02/12/18 06:00 Calcium 7.4 mg/dL (8.5-10.1) L 02/12/18 06:00 Total Bilirubin 0.8 mg/dL (0.2-1.0) D 02/11/18 18:00 AST 24 U/L (15-37) 02/11/18 18:00 ALT 28 U/L (12-78) 02/11/18 18:00 Alkaline Phosphatase 102 U/L (45-117) 02/11/18 18:00 Total Protein 6.7 g/dl (6.4-8.2) 02/11/18 18:00 Albumin 2.6 g/dl (3.4-5.0) L 02/12/18 06:00 Current Medications Generic Name Dose Route Start Last Admin Trade Name Freq PRN Reason Stop Dose Admin Acetaminophen 1,000 mg 02/11/18 21:20 02/12/18 17:08 Ofirmev Injection - IVPB 1,000 mg Q6H PRN Administration FEVER Chlorhexidine Gluconate 1 applic 02/11/18 22:00 02/11/18 22:10 Hibiclens For Decolonization - TP 1 applic HS BEATRICE Administration Heparin Sodium (Porcine) 5,000 unit 02/12/18 06:00 02/12/18 14:28 Heparin - SQ 5,000 unit TID BEATRICE Administration Hydromorphone HCl 1 mg 02/12/18 01:09 02/12/18 09:08 Dilaudid Injection - IVPUSH 1 mg Q8H PRN Administration PAIN LEVEL 7 - 10 Meropenem 1 gm/ Dextrose 100 mls @ 200 mls/hr 02/12/18 10:00 02/12/18 17:40 IVPB 200 mls/hr Q8H-IV BEATRICE Administration Lactated Ringer's 1,000 ml in 1,000 mls @ 150 mls/hr 02/11/18 21:15 02/12/18 17:00 Lactated Ringers Solution IV 150 mls/hr ASDIR BEATRICE Administration Mupirocin 1 applic 02/11/18 22:00 02/12/18 09:10 Bactroban Ointment (For Decolonization) - NS 02/16/18 21:59 1 applic BID BEATRICE Administration Home Medications Medication Instructions Recorded Glucosamine/Chondr Dorsey A Sod [Osteo 1 each PO DAILY 02/10/18 Bi-Flex Caplet] Naproxen/Esomeprazole Mag [Vimovo 1 each PO BID 02/10/18 Dr 500-20 mg Tablet] 02/10/18: Abdomen flat and upright XR: constipation. no sign of free air, organomegaly, or upper abdominal calcifications of significance. the lung bases are well-aerated. there is a large heart with some prominent central vascular markings. there is a left pelvic phlebolith, L buttock granulomata and patent SI joints. the hips appear symmetrical. there is a contracted urine filled bladder and prominent uterine silhouette. 02/10/18: CTAP w/contrast: 1. moderate to severe L hydroureteronephrosis with delayed nephrogram, forniceal rupture and moderate pararenal fluid. No ureteral or urinary bladder calculus is identified 02/10/18: Transvaginal US: uterus in size 9.6x6.6x6.8cm. there are multiple small uterine masses consistent with leiomyomata. the largest fibroid measures 4.7 x 4.3 x 4.4cm and is located medially. a normal appearing endomerium of 3mm thickness is identified. the R ovary is normal in size and texture with arterial and venous flow documented to the ovary. there is a small cyst measuring 2.7 x 2.3x1.8 cm. the L ovary could not be identified. there is no evidence of adnexal masses or free pelvic fluid collections. 02/10/18: Kidney, bladder sono: 1. mild left sided hydronpehrosis. 2. perinephric fluid suggesting forniceal rupture. clinical correlation and follow- up recommended. EKG: NSR, right atrial enlargement, non-specific T wave abnormality, QTc of 460 ASSESSMENT/PLAN: Patient is a 52F presented with worsening lower back pain and was found to have a forniceal rupture on admission: # Obstructive uropathy with forniceal rupture from extrinsic compression of fibroiid uterus. s/p nephrostomy tube on the left side. a retrograde stent will not remain open with this level of extrinsic compression. THREAD TWISTER consulted Dr. Domínguez and discussed with , will see the patient and manage her fibroid uterus. # Sepsis with septic shock was resuscitated by IVF and started on Meropenem , prior to Nephrostomy tube, patient was placed on 2gm Rocephin IV, patient became septic and was transferred to ICU for further care. Today patient is doing well. #constipation-resolved continue bowel regimen #R adnexal cyst/leiomyomatous uterus THREAD TWISTER consulted- Dr. Domínguez #pre-diabetes/obesity with A1c 6.4%, nutrition consult DVT Px: heparin 5000U TID
[2018-02-12] MEDS: CHLORHEXIDINE GLUCONATE 4% CLEANSER FOR DECOLONIZATION TP SCH (22:00)
[2018-02-13] MEDS: MEROPENEM 1 GM in DEXTROSE 5%-WATER 100 ML IVPB SCH ×3 (01:22→18:42)
[2018-02-13] MEDS: HYDROmorphone HCL CARPU-JECT 1 MG/1 ML DISP.SYRIN IVPUSH PRN (04:55)
[2018-02-13] MEDS: HEPARIN NA (PORCINE) 5,000 UNITS/ML 1ML VIAL SQ SCH ×3 (05:51→21:36)
[2018-02-13 06:10] LABS: BASO % 0.6 % (0-2.0); EOS % 1.4 % (0-4.5); HEMATOCRIT 32.6 % (32.4-45.2); HEMOGLOBIN 10.8 GM/dL (10.7-15.3); LYMPH % 12.5 % (8-40); MCHC 33.2 g/dl (32.0-36.0); MEAN CELL VOLUME 84.4 fl (80-96); MEAN PLT VOLUME 9.7 fl (7.5-11.1); NEUT % 77.5 % (42.8-82.8); PLATELET COUNT 122 K/MM3 (134-434); RBC 3.86 M/mm3 (3.60-5.2); RDW 15.3 % (11.6-15.6); WHITE BLOOD COUNT 7.9 K/mm3 (4.0-10.0)
[2018-02-13 06:39] LABS: ALBUMIN 2.3 g/dl (3.4-5.0); ANION GAP 8 (8-16); BILIRUBIN,TOTAL 0.5 mg/dL (0.2-1.0); BLOOD UREA NITROGEN 8 mg/dL (7-18); CALCIUM 7.9 mg/dL (8.5-10.1); CHLORIDE 102 mmol/L (98-107); CO2 29 mmol/L (21-32); CREATININE 0.4 mg/dL (0.55-1.02); GLUCOSE,RANDOM 89 mg/dL (74-106); PHOSPHOROUS 1.9 mg/dL (2.5-4.9); POTASSIUM 3.5 mmol/L (3.5-5.1); SGOT/AST 33 U/L (15-37); SGPT/ALT 30 U/L (12-78); SODIUM 139 mmol/L (136-145); TOT PROT 5.9 g/dl (6.4-8.2)
[2018-02-13 06:40] LABS: ALK PHOS 74 U/L (45-117)
--- NOTE | 2018-02-13 07:00 | PN ---
Progress Note, Physician Chief Complaint: ID Better today though has pain at nephrostomy insertion site Meropenem Temps down - Current Medication List Current Medications: Active Medications Acetaminophen (Ofirmev Injection -) 1,000 mg IVPB Q6H PRN PRN Reason: FEVER Last Admin: 02/12/18 17:08 Dose: 1,000 mg Chlorhexidine Gluconate (Hibiclens For Decolonization -) 1 applic TP HS [facility] Last Admin: 02/12/18 22:00 Dose: 1 applic Heparin Sodium (Porcine) (Heparin -) 5,000 unit SQ TID [facility] Last Admin: 02/13/18 05:51 Dose: 5,000 unit Hydromorphone HCl (Dilaudid Injection -) 1 mg IVPUSH Q8H PRN PRN Reason: PAIN LEVEL 7 - 10 Last Admin: 02/13/18 04:55 Dose: 1 mg Meropenem 1 gm/ Dextrose 100 mls @ 200 mls/hr IVPB Q8H-IV [facility] Last Admin: 02/13/18 01:22 Dose: 200 mls/hr Lactated Ringer's (Lactated Ringers Solution) 1,000 ml in 1,000 mls @ 150 mls/ hr IV ASDIR [facility] Last Admin: 02/12/18 21:58 Dose: 150 mls/hr Mupirocin (Bactroban Ointment (For Decolonization) -) 1 applic NS BID [facility] Stop: 02/16/18 21:59 Last Admin: 02/12/18 22:00 Dose: 1 applic - Objective Vital Signs: Vital Signs Temperature 99.1 F 02/13/18 06:00 Pulse Rate 83 02/13/18 06:00 Respiratory Rate 18 02/13/18 06:00 Blood Pressure 150/90 02/13/18 06:00 O2 Sat by Pulse Oximetry (%) 100 02/12/18 22:00 Constitutional: Yes: No Distress Eyes: Yes: WNL, Conjunctiva Clear Neck: Yes: WNL, Supple Cardiovascular: Yes: S1, S2 Respiratory: Yes: WNL, Regular, CTA Bilaterally. No: Rales, Rhonchi Gastrointestinal: Yes: WNL, Normal Bowel Sounds, Soft, Other (Nephrostomy left) . No: Tenderness Edema: No Labs: CBC, BMP 02/13/18 05:55 02/13/18 05:55 INR, PTT INR 1.38 (0.82-1.09) H 02/11/18 18:00 Problem List - Problems (1) Obstructive and reflux uropathy Code(s): N13.9 - OBSTRUCTIVE AND REFLUX UROPATHY, UNSPECIFIED (2) Sepsis Code(s): A41.9 - SEPSIS, UNSPECIFIED ORGANISM (3) UTI (urinary tract infection) Code(s): N39.0 - URINARY TRACT INFECTION, SITE NOT SPECIFIED Assessment/Plan Microbiology 02/11/18 20:00 Blood - Peripheral Venous Blood Culture - Preliminary NO GROWTH OBTAINED AFTER 24 HOURS, INCUBATION TO CONTINUE FOR 4 DAYS. Laboratory Tests 02/11/18 02/13/18 02/13/18 20:30 05:55 05:55 WBC 7.9 D Hgb 10.8 Hct 32.6 Plt Count 122 L BUN 8 Creatinine 0.4 L Ur Leukocyte Esterase 2+ H Urine WBC (Auto) 3010 Urine RBC (Auto) 1190 Assessment Sepsis syndrome urinary source Obstructive uropathy S/P placement nephrostomy on the left side Hydronephrosis secondary to large fibroid uterus Plan For now continue Meropenem we can deescalete therapy once cultures final Christina QUINONEZ
[2018-02-13] MEDS: LACTATED RINGERS SOLUTION 1,000 ML/1,000 ML INFUS.BAG IV SCH ×3 (09:00→21:40)
[2018-02-13] MEDS ORDERED: PT OWN MED DRAWER 7, Y5N ONE (09:45)
[2018-02-13] MEDS ORDERED: oxyCODONE HCL 5 MG TABLET PO PRN (10:09)
[2018-02-13] MEDS ORDERED: NAPH,MB-DB/K PH,MBDB POWDER PACKET PO ONE (10:15)
[2018-02-13] MEDS: MUPIROCIN 2% TOPICAL OINTMENT FOR DECOLONIZATION NS SCH (11:18)
--- NOTE | 2018-02-13 11:39 | PN ---
Physical Exam: SUBJECTIVE: Patient seen and examined in ICU at bed side had some fever 100.7 yesterday evening , reports slight headach pain is controlled in nephrostmy sight , POD#2 transfer to [facility]-surg tolerating full liquid diet will advance as tolerated OBJECTIVE: Vital Signs Period Temp Pulse Resp BP Sys/Roland Pulse Ox Last 24 Hr 99 F-100.7 F 69-96 16-25 111-159/63-91 88-100 GENERAL: AAOx3, in NAD HEAD: NC/AT EYES: PERRL, EOMI sclera anicteric, conjunctiva clear. ENT:MMM, no exudates NECK: supple. LUNGS: Tachypnech , CTA B/L no wheezes, no crackles, no accessory muscle use. HEART: RRR, S1, S2 without MRG ABDOMEN: Soft, nondistended, normoactive bowel sounds, no guarding, no rebound,left CVA tenderness EXTREMITIES: 2+ pulses, warm, well-perfused, no edema. NEUROLOGICAL:no focal deficit . Normal speech, gait not observed. PSYCH: Normal mood, normal affect. SKIN: Warm, dry, normal turgor, Laboratory Results - last 24 hr 02/12/18 02/13/18 02/13/18 05:49 05:55 05:55 WBC 7.9 D RBC 3.86 Hgb 10.8 Hct 32.6 MCV 84.4 MCH 28.0 MCHC 33.2 RDW 15.3 Plt Count 122 L MPV 9.7 Absolute Neuts (auto) 6.2 Neutrophils % 77.5 Lymphocytes % 12.5 D Monocytes % 8.0 Eosinophils % 1.4 D Basophils % 0.6 Nucleated RBC % 0 Sodium 139 Potassium 3.5 Chloride 102 Carbon Dioxide 29 Anion Gap 8 BUN 8 Creatinine 0.4 L Creat Clearance w eGFR > 60 POC Glucometer 98.96403 Random Glucose 89 Calcium 7.9 L Phosphorus 1.9 L Magnesium 2.0 Total Bilirubin 0.5 D AST 33 ALT 30 Alkaline Phosphatase 74 Total Protein 5.9 L Albumin 2.3 L Active Medications Generic Name Dose Route Start Last Admin Trade Name Freq PRN Reason Stop Dose Admin Acetaminophen 1,000 mg 02/11/18 21:20 02/12/18 17:08 Ofirmev Injection - IVPB 1,000 mg Q6H PRN Administration FEVER Chlorhexidine Gluconate 1 applic 02/11/18 22:00 02/12/18 22:00 Hibiclens For Decolonization - TP 1 applic HS BEATRICE Administration Heparin Sodium (Porcine) 5,000 unit 02/12/18 06:00 02/13/18 05:51 Heparin - SQ 5,000 unit TID BEATRICE Administration Meropenem 1 gm/ Dextrose 100 mls @ 200 mls/hr 02/12/18 10:00 02/13/18 11:17 IVPB 200 mls/hr Q8H-IV BEATRICE Administration Lactated Ringer's 1,000 ml in 1,000 mls @ 75 mls/hr 02/13/18 10:45 02/13/18 10:48 Lactated Ringers Solution IV 75 mls/hr ASDIR BEATRICE Administration Mupirocin 1 applic 02/11/18 22:00 02/13/18 11:18 Bactroban Ointment (For Decolonization) - NS 02/16/18 21:59 1 applic BID BEATRICE Administration Oxycodone HCl 5 mg 02/13/18 10:09 Roxicodone - PO Q6H PRN PAIN LEVEL 6-10 CBC, BMP 02/13/18 05:55 02/13/18 05:55 ASSESSMENT/PLAN: 52 year old female with pre deiabetic presented to the ED for left flank pain and was found to have left hydronephrosis with left ureteral obstruction and uterine fibroid , S/P left nephrostomy and was admitted to ICU for further evaluation and treatement ID -Urosepsis due to complicated UTI * presented with fever , hypotension and tachycardia * fever is trending down , BP has improved with IV fluids , still tachycardic , tachypnech * S/P Left nephrostomy with stent placement * ID on board Dr Corral recommend continue Meropenem * Cont IV fluids RL * PO Tylenol for pain and fever * Diluded IV 1 mg Q8hr PRN * F/U blood cx and urine cx Nephro - Left kidney hydonephrosis with left ureter obstruction due to uterus leiomyomata (fibroid ) S/O Nephrostomy with stent placemnet * US showed left hydronephrosis with capsule ruptured and casey renal edema * POD# 2 * Continue IV fluids 75 CC/hr * pain control * anti emetics * cont ABX as above * Urologist recommendation Dr Fernández is appreciated # GI - Constipation, resolved * Started colace and Miralax * encourage early movement * denies any blood or hemorrhoids * advance diet as tolerated # evp [place] - R adnexal cust with Leiomyomata uterus * US reviewed * Consult marketing project specialist Dr Domínguez * F/U as out pt * # Endo - Pre diabetics -Obesity * HgbA1c 6.4 , BMI 36.7 * Diabetic diet * pt educated about modified life style and diet modification * educated about loosing weight with goal of 1 pound per week * consider bariatric consult as out pt #F/E/N * LR 75 cc/hr * Hypophosphatemia , replenished * full liquid diet, will advance as tolerates #PPX * heparin 5000U SQ TID #Dispo * transfer to med- surg Visit type - Emergency Visit Emergency Visit: Yes ED Registration Date: 02/10/18 Care time: The patient presented to the Emergency Department on the above date and was hospitalized for further evaluation of their emergent condition. - New Patient This patient is new to me today: No - Critical Care Critical Care patient: Yes Total Critical Care Time (in minutes): 45 Critical Care Statement: The care of this patient involved high complexity decision making to prevent further life threatening deterioration of the patient 's condition and/or to evaluate & treat vital organ system(s) failure or risk of failure.
--- NOTE | 2018-02-13 11:39 | PN ---
Teaching Attending Note Name of Resident: Juan Ng ATTENDING PHYSICIAN STATEMENT I saw and evaluated the patient. I reviewed the resident's note and discussed the case with the resident. I agree with the resident's findings and plan as documented. SUBJECTIVE: Pt seen and examined in the ICU. Blood pressure remains improved. Fever curve trending down. Urine culture growing gram negative rods. OBJECTIVE: Vital Signs Period Temp Pulse Resp BP Sys/Roland Pulse Ox Last 24 Hr 99 F-100.7 F 69-96 16-25 111-159/63-91 88-100 Intake & Output 02/10/18 02/11/18 02/12/18 02/13/18 23:59 23:59 23:59 23:59 Intake Total 200 0 5587 2000 Output Total 150 1025 300 Balance 200 -150 4562 1700 Weight 107.048 kg 107.048 kg 109.372 kg 109.316 kg Gen: NAD at rest Heart: RRR Lung: decreased breath sounds at the bases Abd: soft, nontender Ext: no edema CBC, BMP 02/13/18 05:55 02/13/18 05:55 Active Medications Acetaminophen (Ofirmev Injection -) 1,000 mg IVPB Q6H PRN PRN Reason: FEVER Last Admin: 02/12/18 17:08 Dose: 1,000 mg Chlorhexidine Gluconate (Hibiclens For Decolonization -) 1 applic TP HS [facility] Last Admin: 02/12/18 22:00 Dose: 1 applic Heparin Sodium (Porcine) (Heparin -) 5,000 unit SQ TID BEATRICE Last Admin: 02/13/18 05:51 Dose: 5,000 unit Meropenem 1 gm/ Dextrose 100 mls @ 200 mls/hr IVPB Q8H-IV BEATRICE Last Admin: 02/13/18 11:17 Dose: 200 mls/hr Lactated Ringer's (Lactated Ringers Solution) 1,000 ml in 1,000 mls @ 75 mls/ hr IV ASDIR BEATRICE Last Admin: 02/13/18 10:48 Dose: 75 mls/hr Mupirocin (Bactroban Ointment (For Decolonization) -) 1 applic NS BID BEATRICE Stop: 02/16/18 21:59 Last Admin: 02/13/18 11:18 Dose: 1 applic Oxycodone HCl (Roxicodone -) 5 mg PO Q6H PRN PRN Reason: PAIN LEVEL 6-10 ASSESSMENT AND PLAN: Left Hydroureteronephosis/Pyelonephritis Fibroid Uterus - r/o ureteral obstruction s/p percutaneous nephrostomy placement Severe Sepsis Acute Kidney Injury Lactic Acidosis Thrombocytopenia - continue antibiotics - f/u cultures - can decrease IVF - monitor urine output, creatinine - pain control - inspector repairer 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
[2018-02-13 14:49] VITALS: BMI 36.6
--- NOTE | 2018-02-13 15:03 | PN ---
Teaching Attending Note Name of Resident: Christina Hawkins ATTENDING PHYSICIAN STATEMENT I saw and evaluated the patient. I reviewed the resident's note and discussed the case with the resident. I agree with the resident's findings and plan as documented. SUBJECTIVE: no fever or chills. feels much better. abd pain is still there but better OBJECTIVE: NAD Cv : RRR Lungs: CTAB Abd: soft ,Minimal TTP in suprapubic area. L nephrostomy tube in flank, NL BS Ext: no edema ASSESSMENT AND PLAN: 52 y/o lady with h/o prediabetes who presented with L flank pain and was found to have urosepsis and forniceal from an obstructing lyomyomatous uterus 1- uro sepsis: improved after L nephrostomy tube - cont meropenem - d/w Uro: nephrostomy tube to be there x 4-6 weeks and in mean time mightn need stent placement . will d/w IR 2- lyomatous uterus : HOSPICE MANAGER eval as she might need hysterectomy. timing ? 3- R ovarian cyst: f/u as out pt 4- hypophosphatemia : replete Heparin sq
--- NOTE | 2018-02-13 16:27 | PN ---
Physical Exam: SUBJECTIVE: Patient seen and examined at bedside. Overnight, pt voiding and with nephrostomy tube draining. Received dilaudid for pain. Today, states that her appetite has improved, however still with abdominal pain. Transferred out of ICU. Denies [place], fever, chills, chest pain, or changes in bowel function. OBJECTIVE: Vital Signs Period Temp Pulse Resp BP Sys/Roland Pulse Ox Last 24 Hr 99 F-100.7 F 79-94 16-25 115-159/63-91 95-100 GENERAL: The patient is tired. awake, fully oriented, in no acute distress. HEAD: Normal with no signs of trauma. EYES: PERRL, extraocular movements intact, sclera anicteric, conjunctiva clear. ENT: Ears normal, nares patent, oropharynx clear without exudates NECK: Trachea midline, supple. LUNGS: Breath sounds equal, clear to auscultation bilaterally, no wheezes, no crackles, no accessory muscle use. +poor inspiratory effort HEART: Regular rate and rhythm, S1, S2 without murmur, rub or gallop. ABDOMEN: Soft, +diffusely tender, normoactive bowel sounds, +guarding. + L nephrostomy tube draining, with surrounding TTP. however no erythema EXTREMITIES: 2+ pt pulses, warm, well-perfused, no edema. NEUROLOGICAL: Cranial nerves II through XII grossly intact. PSYCH: Normal mood, normal affect. SKIN: Warm, dry, normal turgor Laboratory Results - last 24 hr 02/13/18 02/13/18 05:55 05:55 WBC 7.9 D RBC 3.86 Hgb 10.8 Hct 32.6 MCV 84.4 MCH 28.0 MCHC 33.2 RDW 15.3 Plt Count 122 L MPV 9.7 Absolute Neuts (auto) 6.2 Neutrophils % 77.5 Lymphocytes % 12.5 D Monocytes % 8.0 Eosinophils % 1.4 D Basophils % 0.6 Nucleated RBC % 0 Sodium 139 Potassium 3.5 Chloride 102 Carbon Dioxide 29 Anion Gap 8 BUN 8 Creatinine 0.4 L Creat Clearance w eGFR > 60 Random Glucose 89 Calcium 7.9 L Phosphorus 1.9 L Magnesium 2.0 Total Bilirubin 0.5 D AST 33 ALT 30 Alkaline Phosphatase 74 Total Protein 5.9 L Albumin 2.3 L Active Medications Generic Name Dose Route Start Last Admin Trade Name Freq PRN Reason Stop Dose Admin Acetaminophen 1,000 mg 02/11/18 21:20 02/12/18 17:08 Ofirmev Injection - IVPB 1,000 mg Q6H PRN Administration FEVER Chlorhexidine Gluconate 1 applic 02/11/18 22:00 02/12/18 22:00 Hibiclens For Decolonization - TP 1 applic HS BEATRICE Administration Heparin Sodium (Porcine) 5,000 unit 02/12/18 06:00 02/13/18 13:20 Heparin - SQ 5,000 unit TID BEATRICE Administration Meropenem 1 gm/ Dextrose 100 mls @ 200 mls/hr 02/12/18 10:00 02/13/18 11:17 IVPB 200 mls/hr Q8H-IV BEATRICE Administration Lactated Ringer's 1,000 ml in 1,000 mls @ 75 mls/hr 02/13/18 10:45 02/13/18 10:48 Lactated Ringers Solution IV 75 mls/hr ASDIR BEATRICE Administration Mupirocin 1 applic 02/11/18 22:00 02/13/18 11:18 Bactroban Ointment (For Decolonization) - NS 02/16/18 21:59 1 applic BID BEATRICE Administration Oxycodone HCl 5 mg 02/13/18 10:09 Roxicodone - PO Q6H PRN PAIN LEVEL 6-10 Microbiology 02/12/18 02:00 Urine - Urine Nephrostomy Tube Left Urine Culture - Final NO GROWTH OBTAINED 02/11/18 20:00 Blood - Peripheral Venous Blood Culture - Preliminary NO GROWTH OBTAINED AFTER 24 HOURS, INCUBATION TO CONTINUE FOR 4 DAYS. 02/11/18 18:00 Blood - Peripheral Venous Blood Culture - Preliminary NO GROWTH OBTAINED AFTER 24 HOURS, INCUBATION TO CONTINUE FOR 4 DAYS. 02/11/18 16:15 Urine - Urine Nephrostomy Tube Left Urine Culture - Preliminary Gram Negative [facility] 02/10/18: Abdomen flat and upright XR: constipation. no sign of free air, organomegaly, or upper abdominal calcifications of significance. the lung bases are well-aerated. there is a large heart with some prominent central vascular markings. there is a left pelvic phlebolith, L buttock granulomata and patent SI joints. the hips appear symmetrical. there is a contracted urine filled bladder and prominent uterine silhouette. 02/10/18: CTAP w/contrast: 1. moderate to severe L hydroureteronephrosis with delayed nephrogram, forniceal rupture and moderate pararenal fluid. No ureteral or urinary bladder calculus is identified 02/10/18: Transvaginal US: uterus in size 9.6x6.6x6.8cm. there are multiple small uterine masses consistent with leiomyomata. the largest fibroid measures 4.7 x 4.3 x 4.4cm and is located medially. a normal appearing endomerium of 3mm thickness is identified. the R ovary is normal in size and texture with arterial and venous flow documented to the ovary. there is a small cyst measuring 2.7 x 2.3x1.8 cm. the L ovary could not be identified. there is no evidence of adnexal masses or free pelvic fluid collections. 02/10/18: Kidney, bladder sono: 1. mild left sided hydronpehrosis. 2. perinephric fluid suggesting forniceal rupture. clinical correlation and follow- up recommended. EKG: NSR, right atrial enlargement, non-specific T wave abnormality, QTc of 460 ASSESSMENT/PLAN: 52 y/o F w/ PMH of pre-DM who presents with worsening lower back pain. #worsening LBP likely 2/2 L hydroureteronephrosis, forniceal rupture vs. leiomyomatous uterus -improved clinically, transferred out of ICU. -s/p L nephrostomy tube- (PO Day2; Dr. Penaloza) -d/w urology, will likely have NT for >1 wk, can be for up to 4-6 wks. d/t severity of initial compression, infection -d/w IR, may be d/c with NT, rec stent placement as outpatient once abx course complete -EXECUTIVE ASST: Dr. Domínguez, pt may need elective hysterectomy as outpatient to relieve obstruction. -pain control: oxycodone 5mg PO q6h PRN -fever: Tylenol 1g IV q6h PRN #sepsis s/p nephrostomy tube insertion -continue meropenem 1gm q8h qd (Today is Day2 ) -vanco and rocephin have been d/c -NT UCx (+) gram neg rods -ID on case: Dr. Corral #R adnexal cyst/leiomyomatous uterus -EXECUTIVE ASST consult- Dr. Domínguez -pt will be seen and may need outpatient hysterectomy #pre-diabetes/obesity -A1c 6.4% -started on diabetic diet #hypophosphatemia -level 1.9 -repleted w/ neutra-phosph pkt #constipation-resolved #F/E/N -LR 75 cc/hr -continue to follow lytes -diabetic diet #PPX -heparin 5000 SQ U TID #Dispo continued monitoring on med-surg Visit type - Emergency Visit Emergency Visit: No - New Patient This patient is new to me today: No - Critical Care Critical Care patient: No
[2018-02-13] MEDS ORDERED: ACETAMINOPHEN 1000 MG/100 ML VIAL (NON FORMULARY) IVPB PRN (18:55)
--- NOTE | 2018-02-13 21:26 | CON.OBG ---
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: CVA, Seizure Cardio/Vascular: No: AFIB, CAD, CHF, HTN Pulmonary: No: Asthma, COPD Gastrointestinal: Yes: Constipation, GERD Renal/: No: Renal Failure, Renal Inusuff, BPH, Cancer, Hematuria, Hemodialysis , Neurogenic Bladder, Renal Calculi, UTI, Other Reproductive: Yes: Fibroids ...: No Endocrine: Yes: Other (Pre-DM HbA1C 6.4) Additional Medical History: Obesity - Past Surgical History Additional Surgical History: abdominal skin surgery, percutaneous nephrostomy tube placed this admission - Alcohol/Substance Use Hx Alcohol Use: No - Smoking History Smoking history: Never smoked Have you smoked in the past 12 months: No - Social History History of Recent Travel: No Home Medications - Allergies Allergies/Adverse Reactions: Allergies Allergy/AdvReac Type Severity Reaction Status Date / Time No Known Allergies Allergy Verified 02/10/18 12:14 - Home Medications Home Medications: Ambulatory Orders Glucosamine/Chondr Dorsey A Sod [Osteo Bi-Flex Caplet] 1 each PO DAILY 02/10/18 Naproxen/Esomeprazole Mag [Vimovo Dr 500-20 mg Tablet] 1 each PO BID 02/10/18 Review of Systems - Review of Systems Constitutional: reports: No Symptoms Eyes: reports: No Symptoms HENT: reports: No Symptoms Gastrointestinal: reports: Abdominal Pain, Constipation. 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 No: Palpable Mass, Tenderness Renal/: Yes: Other (left percutaneous nephrostomy tube noted, draining) Edema: No Psychiatric: Yes: Alert, Oriented Labs: CBC, BMP 02/13/18 05:55 02/13/18 05:55 Problem List - Problems (1) Leiomyoma Code(s): D21.9 - BENIGN NEOPLASM OF CONNECTIVE AND OTHER SOFT TISSUE, UNSP (2) Obstructive and reflux uropathy Code(s): N13.9 - OBSTRUCTIVE AND REFLUX UROPATHY, UNSPECIFIED Assessment/Plan Pt improved s/p urology consult and percutaneous nephrostomy tube placement Obstructive uropathy, suspect that leiomyomatous uterus source of obstruction would recommend hysterectomy/myomectomy for fibroid removal once patient medically stable
[2018-02-14] MEDS: oxyCODONE HCL 5 MG TABLET PO PRN ×3 (00:53→22:29)
[2018-02-14] MEDS: MEROPENEM 1 GM in DEXTROSE 5%-WATER 100 ML IVPB SCH ×3 (02:00→19:00)
[2018-02-14] MEDS: HEPARIN NA (PORCINE) 5,000 UNITS/ML 1ML VIAL SQ SCH ×2 (06:00→14:42)
[2018-02-14 08:56] LABS: ANION GAP 11 (8-16); BLOOD UREA NITROGEN 8 mg/dL (7-18); CALCIUM 8.2 mg/dL (8.5-10.1); CHLORIDE 100 mmol/L (98-107); CO2 28 mmol/L (21-32); CREATININE 0.3 mg/dL (0.55-1.02); GLUCOSE,RANDOM 89 mg/dL (74-106); MAGNESIUM 1.7 mg/dL (1.8-2.4); PHOSPHOROUS 2.6 mg/dL (2.5-4.9); POTASSIUM 3.2 mmol/L (3.5-5.1); SODIUM 139 mmol/L (136-145)
[2018-02-14 09:03] LABS: BASO % 0.6 % (0-2.0); EOS % 1.8 % (0-4.5); HEMATOCRIT 32.8 % (32.4-45.2); LYMPH % 19.7 % (8-40); MCH 27.8 pg (25.7-33.7); MCHC 33.4 g/dl (32.0-36.0); MEAN CELL VOLUME 83.3 fl (80-96); MEAN PLT VOLUME 9.3 fl (7.5-11.1); NEUT % 61.9 % (42.8-82.8); PLATELET COUNT 153 K/MM3 (134-434); RBC 3.94 M/mm3 (3.60-5.2); RDW 15.7 % (11.6-15.6); WHITE BLOOD COUNT 7.6 K/mm3 (4.0-10.0)
--- NOTE | 2018-02-14 10:04 | PN ---
Progress Note (short form) - Note Progress Note: Resting in NAD. Good output from Nephostomy. No CP or SOB. No acute events overnight. Intake & Output 02/11/18 02/12/18 02/13/18 02/14/18 23:59 23:59 23:59 23:59 Intake Total 0 5587 3583 Output Total 150 1025 650 Balance -150 4562 2933 Weight 236 lb 241 lb 2 oz 241 lb Last Vital Signs Temp Pulse Resp BP Pulse Ox 98.9 F 86 20 138/82 95 02/14/18 09:00 02/14/18 09:00 02/14/18 09:00 02/14/18 09:00 02/13/18 21:00 Active Medications Acetaminophen (Ofirmev Injection -) 1,000 mg IVPB Q6H PRN PRN Reason: FEVER Heparin Sodium (Porcine) (Heparin -) 5,000 unit SQ TID [facility] Last Admin: 02/13/18 21:36 Dose: 5,000 unit Lactated Ringer's (Lactated Ringers Solution) 1,000 ml in 1,000 mls @ 75 mls/ hr IV ASDIR BEATRICE Last Admin: 02/13/18 21:40 Dose: 75 mls/hr Meropenem 1 gm/ Dextrose 100 mls @ 200 mls/hr IVPB Q8H-IV BEATRICE Oxycodone HCl (Roxicodone -) 5 mg PO Q6H PRN PRN Reason: PAIN LEVEL 6-10 Last Admin: 02/14/18 00:53 Dose: 5 mg OBJECTIVE: Vital Signs Period Temp Pulse Resp BP Sys/Roland Pulse Ox Last 24 Hr 99 F-100.7 F 69-96 16-25 111-159/63-91 88-100 Intake & Output 02/10/18 02/11/18 02/12/18 02/13/18 23:59 23:59 23:59 23:59 Intake Total 200 0 5587 2000 Output Total 150 1025 300 Balance 200 -150 4562 1700 Weight 107.048 kg 107.048 kg 109.372 kg 109.316 kg Gen: NAD at rest Heart: RRR Lung: decreased breath sounds at the bases Abd: soft, nontender Ext: no edema Laboratory Results - last 24 hr 02/14/18 07:22 WBC 7.6 RBC 3.94 Hgb 11.0 Hct 32.8 MCV 83.3 MCH 27.8 MCHC 33.4 RDW 15.7 H Plt Count 153 D MPV 9.3 Absolute Neuts (auto) 4.7 Neutrophils % 61.9 D Lymphocytes % 19.7 D Monocytes % 16.0 H D Eosinophils % 1.8 Basophils % 0.6 Nucleated RBC % 0 ASSESSMENT AND PLAN: Left Hydroureteronephosis/Pyelonephritis Fibroid Uterus - r/o ureteral obstruction s/p percutaneous nephrostomy placement Severe Sepsis Acute Kidney Injury Lactic Acidosis Thrombocytopenia - ABX per ID - IVF - monitor urine output, creatinine - pain control - VTE prophylaxis Dr Gutierres
--- NOTE | 2018-02-14 13:41 | PN ---
Progress Note (short form) - Note Progress Note: ID Dispatcher Refinery note seen re plan latter on for removal fibroid Meropenem Selected Entries 02/14/18 09:00 Temperature 98.9 F Pulse Rate 86 Respiratory 20 Rate Blood Pressure 138/82 Microbiology 02/12/18 02:00 Urine - Urine Nephrostomy Tube Left Urine Culture - Final NO GROWTH OBTAINED 02/11/18 20:00 Blood - Peripheral Venous Blood Culture - Preliminary NO GROWTH OBTAINED AFTER 48 HOURS, INCUBATION TO CONTINUE FOR 3 DAYS. 02/11/18 18:00 Blood - Peripheral Venous Blood Culture - Preliminary NO GROWTH OBTAINED AFTER 48 HOURS, INCUBATION TO CONTINUE FOR 3 DAYS. 02/11/18 16:15 Urine - Urine Nephrostomy Tube Left Urine Culture - Preliminary Lactose Fermenting Neg Bacilli Laboratory Tests 02/14/18 02/14/18 07:22 08:30 WBC 7.6 Hgb 11.0 Plt Count 153 D BUN 8 Creatinine 0.3 L Assessment Assessment Low colony count on GNB urine Meropepen can be switched ? Ceftin Problem List - Problems (1) Obstructive and reflux uropathy Code(s): N13.9 - OBSTRUCTIVE AND REFLUX UROPATHY, UNSPECIFIED (2) Sepsis Code(s): A41.9 - SEPSIS, UNSPECIFIED ORGANISM (3) UTI (urinary tract infection) Code(s): N39.0 - URINARY TRACT INFECTION, SITE NOT SPECIFIED
[2018-02-14] MEDS: LACTATED RINGERS SOLUTION 1,000 ML/1,000 ML INFUS.BAG IV SCH (14:33)
--- NOTE | 2018-02-14 15:49 | PN ---
Teaching Attending Note Name of Resident: Christina Hawkins ATTENDING PHYSICIAN STATEMENT I saw and evaluated the patient. I reviewed the resident's note and discussed the case with the resident. I agree with the resident's findings and plan as documented. SUBJECTIVE: pain is better , no fever or chills OBJECTIVE: NAD Cv : RRR Lungs: CTAB Abd: soft ,Minimal TTP in suprapubic area. L nephrostomy tube in flank, NL BS Ext: no edema ASSESSMENT AND PLAN: 52 y/o lady with h/o prediabetes who presented with L flank pain and was found to have urosepsis and forniceal from an obstructing lyomyomatous uterus 1- uro-sepsis: improved after L nephrostomy tube - Abx per ID. Meropenem for now . follow final cx - nephrostomy tube to be there x 4-6 weeks . D/W IR stent is not indicated now 2- lyomatous uterus : appreciate [employer] input . for hysterectomy. Pre-Op risk startification: for this type of non emergent sx ( intermediate risk procedure ) , the patinet is considered low risk for casey-Op cardiac complications ( no signs of ACS, decompensated CHF, arrhythmias, and has good functional status 4-10 METS. ) No further w/u is indicated before sx. Of note : QTc is 460 , will advise avoiding any QTc prolonging anesthetic agents 3- R ovarian cyst: f/u as out pt 4- hypomagnesemia: replete hold Heparin sq after MN for possible sx in am
[2018-02-14] MEDS ORDERED: POTASSIUM CHLORIDE ORAL LIQUID 20 MEQ/15 ML PO ONE (16:00)
[2018-02-14] MEDS ORDERED: MAGNESIUM OXIDE 400 MG TABLET (FP) PO ONE (16:00)
[2018-02-14 16:39] LABS: INR 1.09 (0.82-1.09); PROTHROMBIN TIME (PATIENT) 12.3 SEC (9.7-13.0)
[2018-02-14] MEDS ORDERED: HEPARIN NA (PORCINE) 5,000 UNITS/ML 1ML VIAL SQ SCH (19:24)
--- NOTE | 2018-02-14 19:25 | PN ---
Physical Exam: SUBJECTIVE: Patient seen and examined at bedside. Overnight, pt tolerating diet. With low temp, received Tylenol as per nursing. Today, pt states that her appetite has improved. +BM. Asking to undergo PROFESSOR OF COMMUNICATION surgery during this hospitalization. Still c/o mild abdominal pain. Denies BARRIGA, fever, chills, SOB, chest pain, or changes in urinary or bowel function. OBJECTIVE: Vital Signs Period Temp Pulse Resp BP Sys/Roland Pulse Ox Last 24 Hr 98.3 F-99.2 F 80-92 18-20 138-158/20-88 95 GENERAL: Pleasant pt, alert, and fully oriented, in no acute distress. Resting in bed. HEAD: Normal with no signs of trauma. EYES: PERRL, extraocular movements intact, sclera anicteric, conjunctiva clear. ENT: Ears normal, nares patent, oropharynx clear without exudates, moist mucous membranes. NECK: Trachea midline, full range of motion, supple. LUNGS: Breath sounds equal, clear to auscultation bilaterally, no wheezes, no crackles, no accessory muscle use. +poor effort 2/2 pressure from pelvis HEART: Regular rate and rhythm, S1, S2 without murmur, rub or gallop. ABDOMEN: Soft, obese, diffusely tender. normoactive bowel sounds, no guarding, no rebound EXTREMITIES: 2+ pt pulses, warm, well-perfused, no edema. NEUROLOGICAL: Cranial nerves II through XII grossly intact. PSYCH: Normal mood, normal affect. SKIN: Warm, dry, normal turgor Laboratory Results - last 24 hr 02/14/18 02/14/18 02/14/18 07:22 08:30 15:15 WBC 7.6 RBC 3.94 Hgb 11.0 Hct 32.8 MCV 83.3 MCH 27.8 MCHC 33.4 RDW 15.7 H Plt Count 153 D MPV 9.3 Absolute Neuts (auto) 4.7 Neutrophils % 61.9 D Lymphocytes % 19.7 D Monocytes % 16.0 H D Eosinophils % 1.8 Basophils % 0.6 Nucleated RBC % 0 PT with INR 12.30 INR 1.09 PTT (Actin FS) Sodium 139 Potassium 3.2 L Chloride 100 Carbon Dioxide 28 Anion Gap 11 BUN 8 Creatinine 0.3 L Random Glucose 89 Calcium 8.2 L Phosphorus 2.6 Magnesium 1.7 L Blood Type Antibody Screen Active Medications Generic Name Dose Route Start Last Admin Trade Name Freq PRN Reason Stop Dose Admin Acetaminophen 1,000 mg 02/13/18 18:55 Ofirmev Injection - IVPB Q6H PRN FEVER Lactated Ringer's 1,000 ml in 1,000 mls @ 75 mls/hr 02/13/18 10:45 02/14/18 14:33 Lactated Ringers Solution IV 75 mls/hr ASDIR BEATRICE Administration Meropenem 1 gm/ Dextrose 100 mls @ 200 mls/hr 02/14/18 18:00 IVPB Q8H-IV BEATRICE Oxycodone HCl 5 mg 02/13/18 18:55 02/14/18 10:33 Roxicodone - PO 5 mg Q6H PRN Administration PAIN LEVEL 6-10 Microbiology 02/12/18 02:00 Urine - Urine Nephrostomy Tube Left Urine Culture - Final NO GROWTH OBTAINED 02/11/18 20:00 Blood - Peripheral Venous Blood Culture - Preliminary NO GROWTH OBTAINED AFTER 48 HOURS, INCUBATION TO CONTINUE FOR 3 DAYS. 02/11/18 18:00 Blood - Peripheral Venous Blood Culture - Preliminary NO GROWTH OBTAINED AFTER 72 HOURS, INCUBATION TO CONTINUE FOR 2 DAYS. 02/11/18 16:15 Urine - Urine Nephrostomy Tube Left Urine Culture - Preliminary Lactose Fermenting Neg Bacilli Imaging 02/10/18: Abdomen flat and upright XR: constipation. no sign of free air, organomegaly, or upper abdominal calcifications of significance. the lung bases are well-aerated. there is a large heart with some prominent central vascular markings. there is a left pelvic phlebolith, L buttock granulomata and patent SI joints. the hips appear symmetrical. there is a contracted urine filled bladder and prominent uterine silhouette. 02/10/18: CTAP w/contrast: 1. moderate to severe L hydroureteronephrosis with delayed nephrogram, forniceal rupture and moderate pararenal fluid. No ureteral or urinary bladder calculus is identified 02/10/18: Transvaginal US: uterus in size 9.6x6.6x6.8cm. there are multiple small uterine masses consistent with leiomyomata. the largest fibroid measures 4.7 x 4.3 x 4.4cm and is located medially. a normal appearing endomerium of 3mm thickness is identified. the R ovary is normal in size and texture with arterial and venous flow documented to the ovary. there is a small cyst measuring 2.7 x 2.3x1.8 cm. the L ovary could not be identified. there is no evidence of adnexal masses or free pelvic fluid collections. 02/10/18: Kidney, bladder sono: 1. mild left sided hydronpehrosis. 2. perinephric fluid suggesting forniceal rupture. clinical correlation and follow- up recommended. EKG: NSR, right atrial enlargement, non-specific T wave abnormality, QTc of 460 ASSESSMENT/PLAN: 52 y/o F w/ PMH of pre-DM who presents with worsening lower back pain. #lower back pain 2/2 L hydroureteronephrosis, forniceal rupture vs. leiomyomatous uterus-resolving -s/p L nephrostomy tube- (PO Day3; Dr. Penaloza) -d/w urology, will likely have NT for >1 wk, can be for up to 4-6 wks. d/t severity of initial compression, infection -d/w IR, may be d/c with NT, rec stent placement as outpatient once abx course complete -pain control: oxycodone 5mg PO q6h PRN -fever: Tylenol 1g IV q6h PRN #uropathy 2/2 fibroid uterus -risk stratification : RCI score 0.04%, intermed risk surgery. no need for further testing prior -d/w Dr. Chen; on schedule for 3pm tomorrow -PT, PTT, T+S -NPO after midnight #sepsis s/p nephrostomy tube insertion-improved -continue meropenem 1gm q8h qd (Today is Day4 ) await sensitivities -vanco and rocephin have been d/c -NT UCx (+) lactose fermenting neg bacilli -ID on case: Dr. Corral #R adnexal cyst/leiomyomatous uterus -outpt follow up #pre-diabetes/obesity -A1c 6.4% -started on diabetic diet #hypomagnesemia -repleted with 800mg MagOx x 1 #constipation-resolved #F/E/N -LR 75 cc/hr -continue to follow lytes -NPO after midnight for surgery tomorrow #PPX -heparin 5000 SQ U TID to hold after midnight for surgery #Dispo continued monitoring on med-surg Visit type - Emergency Visit Emergency Visit: No - New Patient This patient is new to me today: No - Critical Care Critical Care patient: No
[2018-02-14] MEDS ORDERED: KETOROLAC TROMETHAMINE 15 MG/ML VIAL IVPB PRN (20:31)
[2018-02-15] MEDS: MEROPENEM 1 GM in DEXTROSE 5%-WATER 100 ML IVPB SCH ×3 (01:19→18:53)
[2018-02-15] MEDS: LACTATED RINGERS SOLUTION 1,000 ML/1,000 ML INFUS.BAG IV SCH ×3 (01:25→20:00)
[2018-02-15] MEDS: oxyCODONE HCL 5 MG TABLET PO PRN (04:38)
[2018-02-15 06:39] LABS: BASO % 0.7 % (0-2.0); EOS % 2.3 % (0-4.5); HEMATOCRIT 33.6 % (32.4-45.2); HEMOGLOBIN 11.3 GM/dL (10.7-15.3); LYMPH % 25.5 % (8-40); MCHC 33.6 g/dl (32.0-36.0); MEAN CELL VOLUME 83.5 fl (80-96); MEAN PLT VOLUME 8.8 fl (7.5-11.1); MONO % 17.2 % (3.8-10.2); NEUT % 54.3 % (42.8-82.8); PLATELET COUNT 175 K/MM3 (134-434); RBC 4.02 M/mm3 (3.60-5.2); RDW 15.7 % (11.6-15.6); WHITE BLOOD COUNT 8.4 K/mm3 (4.0-10.0)
[2018-02-15 06:52] LABS: ALBUMIN 2.5 g/dl (3.4-5.0); ANION GAP 10 (8-16); BILIRUBIN,TOTAL 0.5 mg/dL (0.2-1.0); BLOOD UREA NITROGEN 8 mg/dL (7-18); CALCIUM 8.5 mg/dL (8.5-10.1); CHLORIDE 101 mmol/L (98-107); CO2 29 mmol/L (21-32); CREATININE 0.3 mg/dL (0.55-1.02); GLUCOSE,RANDOM 101 mg/dL (74-106); POTASSIUM 3.6 mmol/L (3.5-5.1); SGOT/AST 37 U/L (15-37); SGPT/ALT 46 U/L (12-78); SODIUM 140 mmol/L (136-145); TOT PROT 6.3 g/dl (6.4-8.2)
[2018-02-15 06:53] LABS: ALK PHOS 80 U/L (45-117)
--- NOTE | 2018-02-15 11:13 | PN ---
Progress Note, Physician History of Present Illness: Pt feeling well today, pain improving. Has been NPO since midnight with plan for SKYLA/bilateral salpingectomy for obstructing uropathy due to fibroids today at 3pm. - Current Medication List Current Medications: Active Medications Acetaminophen (Ofirmev Injection -) 1,000 mg IVPB Q6H PRN PRN Reason: FEVER Lactated Ringer's (Lactated Ringers Solution) 1,000 ml in 1,000 mls @ 75 mls/ hr IV ASDIR BEATRICE Last Admin: 02/15/18 01:25 Dose: 75 mls/hr Meropenem 1 gm/ Dextrose 100 mls @ 200 mls/hr IVPB Q8H-IV BEATRICE Last Admin: 02/15/18 09:04 Dose: 200 mls/hr Oxycodone HCl (Roxicodone -) 5 mg PO Q6H PRN PRN Reason: PAIN LEVEL 6-10 Last Admin: 02/15/18 04:38 Dose: 5 mg - Objective Vital Signs: Vital Signs Temperature 98.5 F 02/15/18 08:57 Pulse Rate 77 02/15/18 08:57 Respiratory Rate 18 02/15/18 08:57 Blood Pressure 149/85 02/15/18 08:57 O2 Sat by Pulse Oximetry (%) 95 02/14/18 21:00 Constitutional: Yes: Well Nourished, No Distress, Calm Cardiovascular: Yes: WNL Respiratory: Yes: WNL Gastrointestinal: Yes: Normal Bowel Sounds, Soft, Other (obese) Genitourinary: Yes: Other (left PCN tube draining) Extremities: Yes: WNL Psychiatric: Yes: Alert, Oriented Labs: CBC, BMP 02/15/18 05:15 02/15/18 05:15 INR, PTT INR 1.09 (0.82-1.09) 02/14/18 15:15 Problem List - Problems (1) Leiomyoma Code(s): D21.9 - BENIGN NEOPLASM OF CONNECTIVE AND OTHER SOFT TISSUE, UNSP (2) Obstructive and reflux uropathy Code(s): N13.9 - OBSTRUCTIVE AND REFLUX UROPATHY, UNSPECIFIED Assessment/Plan Discussed plan with patient in detail today. R/B/A to hysterectomy discussed in detail. Pt desires hysterectomy, plan for 3pm today. Questions answered. Will sign consents prior to procedure in holding area.
--- NOTE | 2018-02-15 11:19 | PN ---
Progress Note (short form) - Note Progress Note: for surgery today NPO feels well still with PCN now draining clear urine Vital Signs Period Temp Pulse Resp BP Sys/Roland Pulse Ox Last 24 Hr 98.3 F-99.7 F 76-83 18-20 148-156/20-94 95 cor-rrr lungs clear abd soft,nt ext no edema +PCN- clear urine CBC, BMP 02/15/18 05:15 02/15/18 05:15 Microbiology 02/11/18 20:00 Blood - Peripheral Venous Blood Culture - Preliminary NO GROWTH OBTAINED AFTER 72 HOURS, INCUBATION TO CONTINUE FOR 2 DAYS. 02/11/18 18:00 Blood - Peripheral Venous Blood Culture - Preliminary NO GROWTH OBTAINED AFTER 72 HOURS, INCUBATION TO CONTINUE FOR 2 DAYS. 02/11/18 16:15 Urine - Urine Nephrostomy Tube Left Urine Culture - Preliminary Lactose Fermenting Neg Bacilli 02/12/18 02:00 Urine - Urine Nephrostomy Tube Left Urine Culture - Final NO GROWTH OBTAINED Current Medications Acetaminophen (Ofirmev Injection -) 1,000 mg IVPB Q6H PRN PRN Reason: FEVER Lactated Ringer's (Lactated Ringers Solution) 1,000 ml in 1,000 mls @ 75 mls/ hr IV ASDIR BEATRICE Last Admin: 02/15/18 01:25 Dose: 75 mls/hr Meropenem 1 gm/ Dextrose 100 mls @ 200 mls/hr IVPB Q8H-IV BEATRICE Last Admin: 02/15/18 09:04 Dose: 200 mls/hr Oxycodone HCl (Roxicodone -) 5 mg PO Q6H PRN PRN Reason: PAIN LEVEL 6-10 Last Admin: 02/15/18 04:38 Dose: 5 mg a/p sepsis secondary to urinary obstruction/UTI continue meropenem for now f/u urine culture doing well afebrile, normal WBC for OR today Problem List - Problems (1) Sepsis Code(s): A41.9 - SEPSIS, UNSPECIFIED ORGANISM (2) UTI (urinary tract infection) Code(s): N39.0 - URINARY TRACT INFECTION, SITE NOT SPECIFIED (3) Obstructive uropathy Code(s): N13.9 - OBSTRUCTIVE AND REFLUX UROPATHY, UNSPECIFIED (4) Fibroid uterus Code(s): D25.9 - LEIOMYOMA OF UTERUS, UNSPECIFIED
--- NOTE | 2018-02-15 14:10 | PN ---
Teaching Attending Note Name of Resident: Christina Hawkins ATTENDING PHYSICIAN STATEMENT I saw and evaluated the patient. I reviewed the resident's note and discussed the case with the resident. I agree with the resident's findings and plan as documented. SUBJECTIVE: seen in am , feels better . Abd pain is better . no diarrhea OBJECTIVE: NAD Cv : RRR Lungs: CTAB Abd: soft ,Minimal TTP in suprapubic area. L nephrostomy tube in flank with yellow urine in bag , NL BS Ext: no edema ASSESSMENT AND PLAN: 52 y/o lady with h/o prediabetes who presented with L flank pain and was found to have urosepsis and forniceal from an obstructing lyomyomatous uterus 1- Uro-sepsis: improved after L nephrostomy tube . now afebrile nad has nl WBC - urine cx with segura sensitive E coli. - will d/w ID the possibility of switching to PO . ? Vantin - Nephrostomy tube to be there x 4-6 weeks. 2- Lyomyomatous uterus: For hysterectomy today. 3- R ovarian cyst: f/u as out pt resume DVT px after sx. possible dc tomorrow if no complications.
[2018-02-15] MEDS ORDERED: PROPOFOL 20 ML ONE ×2 (14:23→14:27)
[2018-02-15] MEDS ORDERED: fentaNYL CITRATE 250 MCG/5 ML VIAL ONE (14:23)
[2018-02-15] MEDS ORDERED: ROPIVACAINE HCL 0.5% 30ML VIAL ONE (14:24)
[2018-02-15] MEDS ORDERED: DEXAMETHASONE SOD PHOSPHATE/PF 10 MG/ML SDV ONE (14:24)
[2018-02-15] MEDS ORDERED: MIDAZOLAM HCL 2 MG/2 ML SINGLE DOSE VIAL ONE ×2 (14:25)
[2018-02-15] MEDS ORDERED: ROCURONIUM BROMIDE 50 MG/5 ML VIAL ONE (14:27)
[2018-02-15] MEDS ORDERED: LIDOCAINE HCL/PF 2% SDV 5ML VIAL ONE (14:28)
[2018-02-15] MEDS ORDERED: DESFLURANE GAS 240 ML BOTTLE IH ONE (14:31)
--- NOTE | 2018-02-15 14:39 | PN ---
Physical Exam: SUBJECTIVE: Patient seen and examined at bedside. Overnight, pt resting and NPO for surgery in AM. Today, pt without complaint. About to wheel off to OR. Denies BARRIGA, fever, chills, SOB, chest pain, or changes in bowel function. OBJECTIVE: Vital Signs Period Temp Pulse Resp BP Sys/Roland Pulse Ox Last 24 Hr 98.0 F-99.7 F 76-83 18-18 148-156/81-94 95-95 GENERAL: Pleasant pt, tired. however alert, and fully oriented, in no acute distress. HEAD: Normal with no signs of trauma. EYES: PERRL, extraocular movements intact, sclera anicteric, conjunctiva clear. ENT: Ears normal, nares patent, oropharynx clear without exudates, moist mucous membranes. NECK: Trachea midline, full range of motion, supple. LUNGS: Breath sounds equal, clear to auscultation bilaterally, no wheezes, no crackles, no accessory muscle use. +poor effort HEART: Regular rate and rhythm, S1, S2 without murmur, rub or gallop. ABDOMEN: Soft, obese, diffusely tender. normoactive bowel sounds, no guarding, no rebound EXTREMITIES: 2+ pt pulses, warm, well-perfused, no edema. NEUROLOGICAL: Cranial nerves II through XII grossly intact. PSYCH: Normal mood, normal affect. SKIN: Warm, dry, normal turgor Laboratory Results - last 24 hr 02/15/18 02/15/18 02/15/18 05:15 05:15 09:40 WBC 8.4 RBC 4.02 Hgb 11.3 Hct 33.6 MCV 83.5 MCH 28.0 MCHC 33.6 RDW 15.7 H Plt Count 175 MPV 8.8 Absolute Neuts (auto) 4.5 Neutrophils % 54.3 Lymphocytes % 25.5 D Monocytes % 17.2 H Eosinophils % 2.3 Basophils % 0.7 Nucleated RBC % 0 PT with INR INR PTT (Actin FS) Sodium 140 Potassium 3.6 Chloride 101 Carbon Dioxide 29 Anion Gap 10 BUN 8 Creatinine 0.3 L Creat Clearance w eGFR > 60 Random Glucose 101 Calcium 8.5 Total Bilirubin 0.5 AST 37 ALT 46 Alkaline Phosphatase 80 Total Protein 6.3 L Albumin 2.5 L Serum , Qual Negative Blood Type Antibody Screen Coags 02/14/18 02/14/18 15:15 15:15 PT with INR 12.30 INR 1.09 PTT (Actin FS) 29.6 Active Medications Generic Name Dose Route Start Last Admin Trade Name Freq PRN Reason Stop Dose Admin Acetaminophen 1,000 mg 02/13/18 18:55 Ofirmev Injection - IVPB Q6H PRN FEVER Lactated Ringer's 1,000 ml in 1,000 mls @ 75 mls/hr 02/13/18 10:45 02/15/18 01:25 Lactated Ringers Solution IV 75 mls/hr ASDIR BEATRICE Administration Meropenem 1 gm/ Dextrose 100 mls @ 200 mls/hr 02/14/18 18:00 02/15/18 09:04 IVPB 200 mls/hr Q8H-IV BEATRICE Administration Oxycodone HCl 5 mg 02/13/18 18:55 02/15/18 04:38 Roxicodone - PO 5 mg Q6H PRN Administration PAIN LEVEL 6-10 Microbiology 02/12/18 02:00 Urine - Urine Nephrostomy Tube Left Urine Culture - Final NO GROWTH OBTAINED 02/11/18 16:15 Urine - Urine Nephrostomy Tube Left Urine Culture - Final Escherichia Coli 02/11/18 20:00 Blood - Peripheral Venous Blood Culture - Preliminary NO GROWTH OBTAINED AFTER 72 HOURS, INCUBATION TO CONTINUE FOR 2 DAYS. 02/11/18 18:00 Blood - Peripheral Venous Blood Culture - Preliminary NO GROWTH OBTAINED AFTER 72 HOURS, INCUBATION TO CONTINUE FOR 2 DAYS. Imaging 02/10/18: Abdomen flat and upright XR: constipation. no sign of free air, organomegaly, or upper abdominal calcifications of significance. the lung bases are well-aerated. there is a large heart with some prominent central vascular markings. there is a left pelvic phlebolith, L buttock granulomata and patent SI joints. the hips appear symmetrical. there is a contracted urine filled bladder and prominent uterine silhouette. 02/10/18: CTAP w/contrast: 1. moderate to severe L hydroureteronephrosis with delayed nephrogram, forniceal rupture and moderate pararenal fluid. No ureteral or urinary bladder calculus is identified 02/10/18: Transvaginal US: uterus in size 9.6x6.6x6.8cm. there are multiple small uterine masses consistent with leiomyomata. the largest fibroid measures 4.7 x 4.3 x 4.4cm and is located medially. a normal appearing endomerium of 3mm thickness is identified. the R ovary is normal in size and texture with arterial and venous flow documented to the ovary. there is a small cyst measuring 2.7 x 2.3x1.8 cm. the L ovary could not be identified. there is no evidence of adnexal masses or free pelvic fluid collections. 02/10/18: Kidney, bladder sono: 1. mild left sided hydronpehrosis. 2. perinephric fluid suggesting forniceal rupture. clinical correlation and follow- up recommended. EKG: NSR, right atrial enlargement, non-specific T wave abnormality, QTc of 460 ASSESSMENT/PLAN: 52 y/o F w/ PMH of pre-DM who presents with worsening lower back pain. #lower back pain 2/2 L hydroureteronephrosis, forniceal rupture vs. leiomyomatous uterus-resolving -s/p L nephrostomy tube- (PO Day4; Dr. Penaloza) -d/w urology, will likely have NT for >1 wk, can be for up to 4-6 wks. d/t severity of initial compression, infection -d/w IR, may be d/c with NT, rec stent placement as outpatient once abx course complete -pain control: oxycodone 5mg PO q6h PRN -fever: Tylenol 1g IV q6h PRN #uropathy 2/2 fibroid uterus -risk stratification : RCI score 0.04%, intermed risk surgery. no need for further testing prior -pt for OR today 3pm: SKYLA/bilateral salpingectomy for obstructing uropathy due to fibroids with Dr. Chen -PT, PTT, T+S have been completed #sepsis s/p nephrostomy tube insertion-improved -continue meropenem 1gm q8h qd (Today is Day5 ). -will stop meropenem tomorrow AM and transition to keflex or augmentin. -vanco and rocephin have been d/c -NT UCx (+) lactose fermenting neg bacilli -ID on case: Dr. Corral #R adnexal cyst/leiomyomatous uterus -outpt follow up #pre-diabetes/obesity -A1c 6.4% -started on diabetic diet #constipation-resolved #F/E/N -LR 75 cc/hr -continue to follow lytes -NPO, to OR now #PPX -heparin 5000 SQ U TID held. will start on lovenox post-op, d/w Dr. Chen #Dispo surgery Visit type - Emergency Visit Emergency Visit: No - New Patient This patient is new to me today: No - Critical Care Critical Care patient: No
--- NOTE | 2018-02-15 15:09 | PN ---
Progress Note (short form) - Note Progress Note: Pt signed procedure consent prior to Tap block and prior to procedure. Discussed risks/benefits/alternatives to hysterectomy. Questions answered in detail. plan for SKYLA and b/l salpingectomy Problem List - Problems (1) Leiomyoma Code(s): D21.9 - BENIGN NEOPLASM OF CONNECTIVE AND OTHER SOFT TISSUE, UNSP (2) Obstructive and reflux uropathy Code(s): N13.9 - OBSTRUCTIVE AND REFLUX UROPATHY, UNSPECIFIED
[2018-02-15] MEDS ORDERED: CEFAZOLIN 2 GM in DEXTROSE 5%-WATER - 100 ML IV ONE (15:14)
[2018-02-15] MEDS ORDERED: ceFAZolin SODIUM 1 GM VIAL ONE (15:59)
[2018-02-15] MEDS ORDERED: ceFAZolin SODIUM 1 GM VIAL IVPB ONE ×2 (16:00)
[2018-02-15] MEDS ORDERED: FUROSEMIDE 40 MG/4 ML INJECTABLE VIAL ONE ×2 (17:20)
[2018-02-15] MEDS ORDERED: NEOSTIGMINE METHYLSULFATE 0.5 MG/ML - 10 ML MDV ONE (17:24)
[2018-02-15] MEDS ORDERED: GLYCOPYRROLATE 0.2 MG/1 ML VIAL ONE (17:24)
[2018-02-15] MEDS ORDERED: PROMETHAZINE HCL 25 MG/1 ML VIAL IVPB PRN ×2 (18:25→19:50)
[2018-02-15] MEDS ORDERED: ONDANSETRON 4 MG/2 ML VIAL IVPUSH PRN ×2 (18:25→19:50)
[2018-02-15] MEDS ORDERED: HYDROmorphone *PCA* 10MG/50ML DISP.SYRIN PCA SCH ×2 (18:30→19:50)
[2018-02-15] MEDS ORDERED: DEXAMETHASONE SOD PHOSPHATE 4 MG/1 ML VIAL IVPUSH ONE ×2 (18:45→19:50)
--- NOTE | 2018-02-15 19:24 | OP ---
Operative Note - Note: Operative Date: 02/15/18 Pre-Operative Diagnosis: abdominal pain, leiomyomatous uterus, obstructive uropathy Operation: SKYLA, bilateral salpingectomy, cystoscopy Findings: normal b/l tubes/ovaries leioyomatous uterus Post-Operative Diagnosis: Same as Pre-op Surgeon: Jenny Chen Regional Sales Leader: Monica Davis Anesthesiologist/NURSE DISCHARGE: Cricket Hassan Anesthesia: General Specimens Removed: uterus ,cervix, bilateral fallopian tubes Estimated Blood Loss (mls): 200 Drains & Tubes with Location: left percutaneous nephrostomy (placed prior to case) draining clear urine - 1000cc, loomis catheter draining 375cc clear urine Operative Report Dictated: Yes
[2018-02-15] MEDS ORDERED: oxyCODONE HCL 5 MG TABLET PO PRN (19:50)
[2018-02-15] MEDS ORDERED: ACETAMINOPHEN 1000 MG/100 ML VIAL (NON FORMULARY) IVPB PRN (19:50)
[2018-02-16] MEDS ORDERED: MEROPENEM 1 GM in DEXTROSE 5%-WATER 100 ML IVPB SCH (02:00)
[2018-02-16] MEDS ORDERED: PT OWN MED DRAWER 7, Y5N ONE (02:10)
[2018-02-16 07:35] LABS: BASO % 0.7 % (0-2.0); HEMATOCRIT 33.7 % (32.4-45.2); HEMOGLOBIN 11.2 GM/dL (10.7-15.3); LYMPH % 14.8 % (8-40); MCH 27.6 pg (25.7-33.7); MCHC 33.4 g/dl (32.0-36.0); MEAN CELL VOLUME 82.6 fl (80-96); MEAN PLT VOLUME 8.7 fl (7.5-11.1); MONO % 14.6 % (3.8-10.2); NEUT % 69.9 % (42.8-82.8); PLATELET COUNT 223 K/MM3 (134-434); RBC 4.08 M/mm3 (3.60-5.2); RDW 15.4 % (11.6-15.6)
[2018-02-16] MEDS: AMOXICILLIN 500 MG CAPSULE (FP) PO SCH ×3 (08:00→21:14)
[2018-02-16 08:08] LABS: BLOOD UREA NITROGEN 8 mg/dL (7-18); CHLORIDE 96 mmol/L (98-107); GLUCOSE,RANDOM 116 mg/dL (74-106); POTASSIUM 4.2 mmol/L (3.5-5.1); SODIUM 135 mmol/L (136-145)
[2018-02-16 08:11] LABS: ANION GAP 8 (8-16); CALCIUM 8.5 mg/dL (8.5-10.1); CO2 31 mmol/L (21-32); CREATININE 0.3 mg/dL (0.55-1.02); MAGNESIUM 1.7 mg/dL (1.8-2.4); PHOSPHOROUS 4.5 mg/dL (2.5-4.9)
[2018-02-16] MEDS ORDERED: MAGNESIUM SULF 50% (8.12 MEQ/2 ML-1 GM VIAL) IVPB ONE (09:32)
[2018-02-16] MEDS ORDERED: MAGNESIUM 1GM/D5W - 1 GM/100 ML IVPB IVPB ONE (10:15)
--- NOTE | 2018-02-16 10:20 | PN ---
Progress Note, Physician Chief Complaint: Pt. resting comfortably, pain controlled with MIX HOUSE TENDER. No GA complaints - Current Medication List Current Medications: Active Medications Acetaminophen (Ofirmev Injection -) 1,000 mg IVPB Q6H PRN PRN Reason: FEVER Amoxicillin (Amoxicillin -) 500 mg PO TID BEATRICE Hydromorphone HCl (Dilaudid Engine Tester -) 10 mg MIX HOUSE TENDER MIX HOUSE TENDER BEATRICE; Protocol Stop: 02/22/18 18:26 Last Admin: 02/15/18 20:35 Dose: 10 mg Lactated Ringer's (Lactated Ringers Solution) 1,000 ml in 1,000 mls @ 75 mls/ hr IV ASDIR BEATRICE Last Admin: 02/15/18 20:00 Dose: 0 mls Magnesium Sulfate/Dextrose (Magnesium 1gm/D5w -) 1 gm in 100 mls @ 100 mls/hr IVPB ONCE ONE Stop: 02/16/18 11:14 Oxycodone HCl (Roxicodone -) 5 mg PO Q6H PRN PRN Reason: PAIN LEVEL 6-10 Promethazine HCl (Phenergan Injection -) 12.5 mg IVPB Q6H PRN PRN Reason: NAUSEA AND/OR VOMITING - Objective Vital Signs: Vital Signs Temperature 97.8 F 02/16/18 05:11 Pulse Rate 85 02/16/18 06:35 Respiratory Rate 18 02/16/18 06:35 Blood Pressure 155/78 02/16/18 06:35 O2 Sat by Pulse Oximetry (%) 94 L 02/15/18 21:00 Constitutional: Yes: Well Nourished, No Distress, Calm Musculoskeletal: Yes: WNL Neurological: Yes: WNL, Alert, Oriented Labs: CBC, BMP 02/16/18 06:15 02/16/18 06:15 INR, PTT INR 1.09 (0.82-1.09) 02/14/18 15:15 Assessment/Plan POD#1 s/p TAHBSO and cystoscopy under GA with bilateral TAP blocks. Doing well Continue MIX HOUSE TENDER
[2018-02-16] MEDS ORDERED: morphine SULFATE 4 MG/ML VIAL IVPUSH PRN (12:30)
[2018-02-16] MEDS ORDERED: oxyCODONE HCL 5 MG TABLET PO PRN ×2 (12:30)
--- NOTE | 2018-02-16 15:10 | PN ---
Teaching Attending Note Name of Resident: Christina Hawkins ATTENDING PHYSICIAN STATEMENT I saw and evaluated the patient. I reviewed the resident's note and discussed the case with the resident. I agree with the resident's findings and plan as documented. SUBJECTIVE: No fever or chills , minimal Abd pain. did not pas gas yet OBJECTIVE: NAD Cv : RRR Lungs: CTAB Abd: soft ,Minimal TTP in suprapubic area. L nephrostomy tube in flank with green urine in bag , NL BS Ext: no edema ASSESSMENT AND PLAN: 52 y/o lady with h/o prediabetes who presented with L flank pain and was found to have urosepsis and forniceal from an obstructing lyomyomatous uterus 1- Uro-sepsis: improved after L nephrostomy tube. - urine cx with segura sensitive E coli. - switch to amoxi . - slight bump in WBC is likely a reaction to surgery stress - Nephrostomy tube to be there x 4-6 weeks. 2- Lyomyomatous uterus: POD1 after hysterecotmy - d/w side effects of pain meds . pt is willing to dc PROGRAM SPECIALIST - dc PROGRAM SPECIALIST and place on po oxy and iv morphine 3- R ovarian cyst: f/u as out pt cont clear diet until passes gas DVT PX ambulation
[2018-02-16] MEDS: HEPARIN NA (PORCINE) 5,000 UNITS/ML 1ML VIAL SQ SCH ×2 (15:35→21:15)
--- NOTE | 2018-02-16 16:48 | PN ---
Physical Exam: SUBJECTIVE: Patient seen and examined at bedside. Overnight, pt post-op, afebrile. Today, pt without flatus. Tolerating diet, using incentive spirometer. Has also been OOB, went on a walk in the hallway. Denies BARRIGA, fever, chills, N/V, or changes in urinary function. OBJECTIVE: Vital Signs Period Temp Pulse Resp BP Sys/Roland Pulse Ox Last 24 Hr 97.6 F-98.8 F 71-92 13-20 138-166/62-93 94-95 GENERAL: The patient is sitting up in bed. awake, alert, and fully oriented, in no acute distress. HEAD: Normal with no signs of trauma. EYES: PERRL, extraocular movements intact, sclera anicteric, conjunctiva clear. ENT: Ears normal, nares patent, oropharynx clear without exudates, moist mucous membranes. NECK: Trachea midline, supple. LUNGS: Breath sounds equal, clear to auscultation bilaterally, no wheezes, no crackles, no accessory muscle use. Limited by pelvic pain HEART: Regular rate and rhythm, S1, S2 without murmur, rub or gallop. ABDOMEN: Soft, tender in LLQ, RLQ. nondistended, normoactive bowel sounds, without guarding. +gauze over incision - clean, without drainage. : +loomis, L nephrostomy draining EXTREMITIES: 2+ pt pulses, warm, well-perfused, no edema. NEUROLOGICAL: Cranial nerves II through XII grossly intact. PSYCH: Normal mood, normal affect. SKIN: Warm, dry, normal turgor Laboratory Results - last 24 hr 02/16/18 02/16/18 02/16/18 06:15 06:15 11:19 WBC 13.0 H D RBC 4.08 Hgb 11.2 Hct 33.7 MCV 82.6 MCH 27.6 MCHC 33.4 RDW 15.4 Plt Count 223 D MPV 8.7 Absolute Neuts (auto) 9.1 Neutrophils % 69.9 D Lymphocytes % 14.8 D Monocytes % 14.6 H Eosinophils % 0.0 D Basophils % 0.7 Nucleated RBC % 0 Sodium 135 L Potassium 4.2 Chloride 96 L Carbon Dioxide 31 Anion Gap 8 BUN 8 Creatinine 0.3 L Creat Clearance w eGFR > 60 POC Glucometer 105 Random Glucose 116 H Calcium 8.5 Phosphorus 4.5 Magnesium 1.7 L Active Medications Generic Name Dose Route Start Last Admin Trade Name Freq PRN Reason Stop Dose Admin Acetaminophen 1,000 mg 02/15/18 19:50 Ofirmev Injection - IVPB Q6H PRN FEVER Amoxicillin 500 mg 02/16/18 08:00 02/16/18 15:35 Amoxicillin - PO 500 mg TID BEATRICE Administration Heparin Sodium (Porcine) 5,000 unit 02/16/18 14:00 02/16/18 15:35 Heparin - SQ 5,000 unit TID BEATRICE Administration Lactated Ringer's 1,000 ml in 1,000 mls @ 75 mls/hr 02/15/18 19:50 02/15/18 20:00 Lactated Ringers Solution IV 0 mls ASDIR BEATRICE Administration Morphine Sulfate 4 mg 02/16/18 12:30 Morphine Sulfate IVPUSH Q4H PRN PAIN LEVEL 7 - 10 Oxycodone HCl 10 mg 02/16/18 12:28 Roxicodone - PO Q6H PRN PAIN LEVEL 4 - 6 Oxycodone HCl 5 mg 02/16/18 12:30 Roxicodone - PO Q6H PRN PAIN LEVEL 1 - 3 Promethazine HCl 12.5 mg 02/15/18 19:50 Phenergan Injection - IVPB Q6H PRN NAUSEA AND/OR VOMITING Imaging 02/10/18: Abdomen flat and upright XR: constipation. no sign of free air, organomegaly, or upper abdominal calcifications of significance. the lung bases are well-aerated. there is a large heart with some prominent central vascular markings. there is a left pelvic phlebolith, L buttock granulomata and patent SI joints. the hips appear symmetrical. there is a contracted urine filled bladder and prominent uterine silhouette. 02/10/18: CTAP w/contrast: 1. moderate to severe L hydroureteronephrosis with delayed nephrogram, forniceal rupture and moderate pararenal fluid. No ureteral or urinary bladder calculus is identified 02/10/18: Transvaginal US: uterus in size 9.6x6.6x6.8cm. there are multiple small uterine masses consistent with leiomyomata. the largest fibroid measures 4.7 x 4.3 x 4.4cm and is located medially. a normal appearing endomerium of 3mm thickness is identified. the R ovary is normal in size and texture with arterial and venous flow documented to the ovary. there is a small cyst measuring 2.7 x 2.3x1.8 cm. the L ovary could not be identified. there is no evidence of adnexal masses or free pelvic fluid collections. 02/10/18: Kidney, bladder sono: 1. mild left sided hydronpehrosis. 2. perinephric fluid suggesting forniceal rupture. clinical correlation and follow- up recommended. EKG: NSR, right atrial enlargement, non-specific T wave abnormality, QTc of 460 Microbiology 02/12/18 02:00 Urine - Urine Nephrostomy Tube Left Urine Culture - Final NO GROWTH OBTAINED 02/11/18 16:15 Urine - Urine Nephrostomy Tube Left Urine Culture - Final Escherichia Coli 02/11/18 20:00 Blood - Peripheral Venous Blood Culture - Preliminary NO GROWTH OBTAINED AFTER 96 HOURS, INCUBATION TO CONTINUE FOR 1 DAYS. 02/11/18 18:00 Blood - Peripheral Venous Blood Culture - Preliminary NO GROWTH OBTAINED AFTER 96 HOURS, INCUBATION TO CONTINUE FOR 1 DAYS. ASSESSMENT/PLAN: 52 y/o F w/ PMH of pre-DM who presents with worsening lower back pain. #uropathy 2/2 fibroid uterus -s/p SKYLA/bilateral salpingectomy for obstructing uropathy due to fibroids - PO Day1 -with leukocytosis, likely reactive post-op -has been OOB, ambulating. using IS -will advance diet after flatus. 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 Roxicodone 5mg q6h (1-3), 10mg q6h (4-6) , morphine 4 mg IVP q4h PRN (7-10) #sepsis s/p nephrostomy tube insertion-improved -amox 500mg PO TID (Day 1/) - first day switch from IV>PO abx -meropenem 1gm q8h qd - completed 5 day course -NT UCx (+) E.coli -ID: Dr. Corral #lower back pain 2/2 L hydroureteronephrosis, forniceal rupture vs. leiomyomatous uterus-resolving -s/p L nephrostomy tube- (PO Day5; Dr. Penaloza) -d/w urology, will likely have NT for >1 wk, can be for up to 4-6 wks. d/t severity of initial compression, infection -d/w IR, may be d/c with NT, rec stent placement as outpatient once abx course complete #R adnexal cyst/leiomyomatous uterus -outpt follow up #pre-diabetes/obesity -A1c 6.4% -started on diabetic diet #constipation-resolved #F/E/N -LR 75 cc/hr -continue to follow lytes -clear liq diet, will advance as tolerates #PPX -heparin 5000 SQ U TID #Dispo post-op monitoring Visit type - Emergency Visit Emergency Visit: No - New Patient This patient is new to me today: No - Critical Care Critical Care patient: No
[2018-02-16] MEDS: oxyCODONE HCL 5 MG TABLET PO PRN (19:20)
[2018-02-16] MEDS: LACTATED RINGERS SOLUTION 1,000 ML/1,000 ML INFUS.BAG IV SCH (21:23)
[2018-02-17] MEDS: oxyCODONE HCL 5 MG TABLET PO PRN ×3 (03:21→22:10)
[2018-02-17] MEDS: LACTATED RINGERS SOLUTION 1,000 ML/1,000 ML INFUS.BAG IV SCH (05:53)
[2018-02-17] MEDS: HEPARIN NA (PORCINE) 5,000 UNITS/ML 1ML VIAL SQ SCH ×3 (06:13→22:11)
[2018-02-17] MEDS: AMOXICILLIN 500 MG CAPSULE (FP) PO SCH ×3 (06:13→22:11)
[2018-02-17 07:36] LABS: BASO % 0.4 % (0-2.0); EOS % 1.1 % (0-4.5); HEMATOCRIT 33.1 % (32.4-45.2); HEMOGLOBIN 11.1 GM/dL (10.7-15.3); LYMPH % 25.5 % (8-40); MCH 27.9 pg (25.7-33.7); MCHC 33.5 g/dl (32.0-36.0); MEAN CELL VOLUME 83.3 fl (80-96); MEAN PLT VOLUME 8.6 fl (7.5-11.1); MONO % 13.1 % (3.8-10.2); NEUT % 59.9 % (42.8-82.8); PLATELET COUNT 286 K/MM3 (134-434); RBC 3.98 M/mm3 (3.60-5.2); RDW 15.4 % (11.6-15.6); WHITE BLOOD COUNT 10.4 K/mm3 (4.0-10.0)
[2018-02-17 08:02] LABS: CHLORIDE 100 mmol/L (98-107); POTASSIUM 3.7 mmol/L (3.5-5.1); SODIUM 138 mmol/L (136-145)
[2018-02-17 08:11] LABS: ANION GAP 9 (8-16); BLOOD UREA NITROGEN 11 mg/dL (7-18); CALCIUM 8.3 mg/dL (8.5-10.1); CO2 29 mmol/L (21-32); CREATININE 0.3 mg/dL (0.55-1.02); GLUCOSE,RANDOM 103 mg/dL (74-106); PHOSPHOROUS 3.8 mg/dL (2.5-4.9)
--- NOTE | 2018-02-17 11:36 | PN ---
Progress Note, Physician Chief Complaint: Pt doing well post op. NO flatus yet. Tolerating clears, no emesis. Ambulating. Loomis catheter draining clear yellow urine. Pain controlled with medications. Denies CP/SOB/F/C/BARRIGA. VB scant. - Current Medication List Current Medications: Active Medications Acetaminophen (Ofirmev Injection -) 1,000 mg IVPB Q6H PRN PRN Reason: FEVER Amoxicillin (Amoxicillin -) 500 mg PO TID [facility] Last Admin: 02/17/18 06:13 Dose: 500 mg Heparin Sodium (Porcine) (Heparin -) 5,000 unit SQ TID [facility] Last Admin: 02/17/18 06:13 Dose: 5,000 unit Lactated Ringer's (Lactated Ringers Solution) 1,000 ml in 1,000 mls @ 75 mls/ hr IV ASDIR [facility] Last Admin: 02/17/18 05:53 Dose: 75 mls/hr Morphine Sulfate (Morphine Sulfate) 4 mg IVPUSH Q4H PRN PRN Reason: PAIN LEVEL 7 - 10 Oxycodone HCl (Roxicodone -) 10 mg PO Q6H PRN PRN Reason: PAIN LEVEL 4 - 6 Last Admin: 02/17/18 10:31 Dose: 10 mg Oxycodone HCl (Roxicodone -) 5 mg PO Q6H PRN PRN Reason: PAIN LEVEL 1 - 3 Promethazine HCl (Phenergan Injection -) 12.5 mg IVPB Q6H PRN PRN Reason: NAUSEA AND/OR VOMITING - Objective Vital Signs: Vital Signs Temperature 98.1 F 02/17/18 10:36 Pulse Rate 88 02/17/18 10:36 Respiratory Rate 16 02/17/18 10:36 Blood Pressure 117/73 02/17/18 10:36 O2 Sat by Pulse Oximetry (%) 91 L 02/16/18 21:00 Constitutional: Yes: Well Nourished, No Distress, Calm Neck: Yes: Supple, Trachea Midline Cardiovascular: Yes: WNL Respiratory: Yes: WNL Gastrointestinal: Yes: Soft, Tenderness (appropriate post surgical tenderness) Extremities: Yes: WNL Edema: No Wound/Incision: Yes: Clean/Dry, Well Approximated, Roberta Intact Neurological: Yes: Alert, Oriented Psychiatric: Yes: Alert, Oriented Labs: CBC, BMP 02/17/18 06:00 02/17/18 06:00 INR, PTT INR 1.09 (0.82-1.09) 02/14/18 15:15 Problem List - Problems (1) Leiomyoma Code(s): D21.9 - BENIGN NEOPLASM OF CONNECTIVE AND OTHER SOFT TISSUE, UNSP (2) Obstructive and reflux uropathy Code(s): N13.9 - OBSTRUCTIVE AND REFLUX UROPATHY, UNSPECIFIED Assessment/Plan POD#2 s/p SKYLA/bilateral salpingectomy for leiomyoma thought to be causing obstructive uropathy AFVSS D/C loomis today advance diet to regular as tolerated once patient able to ambulate, void and pass flatus, is ok for discharge from surgical perspective for discharge planning per primary team
[2018-02-17] MEDS ORDERED: PT OWN MED DRAWER 7, Y5N ONE (14:33)
--- NOTE | 2018-02-17 17:16 | PN ---
Progress Note (short form) - Note Progress Note: Subjective: No fever or chills. abd pain . feels her abd is distended. minimal urine out put after loomis removal Objective: Vital Signs: Last Vital Signs Temp Pulse Resp BP Pulse Ox 98.1 F 88 16 117/73 91 L 02/17/18 10:36 02/17/18 10:36 02/17/18 10:36 02/17/18 10:36 02/16/18 21:00 Laboratory Results - last 24 hr 02/17/18 02/17/18 06:00 06:00 WBC 10.4 H RBC 3.98 Hgb 11.1 Hct 33.1 MCV 83.3 MCH 27.9 MCHC 33.5 RDW 15.4 Plt Count 286 D MPV 8.6 Absolute Neuts (auto) 6.2 Neutrophils % 59.9 Lymphocytes % 25.5 D Monocytes % 13.1 H Eosinophils % 1.1 D Basophils % 0.4 Nucleated RBC % 0 Sodium 138 Potassium 3.7 Chloride 100 Carbon Dioxide 29 Anion Gap 9 BUN 11 Creatinine 0.3 L Creat Clearance w eGFR > 60 Random Glucose 103 Calcium 8.3 L Phosphorus 3.8 Magnesium 2.0 Physical Exam: NAD Cv : RRR Lungs: CTAB Abd: soft ,Minimal TTP in suprapubic area. L nephrostomy tube in flank with green urine in bag , NL BS . suprapubic surgical wound with ryan . no surrounding erythema Ext: no edema ASSESSMENT AND PLAN: 52 y/o lady with h/o prediabetes who presented with L flank pain and was found to have urosepsis and forniceal from an obstructing lyomyomatous uterus 1- Uro-sepsis: improved after L nephrostomy tube. - Cont amoxi day 2/7 - Nephrostomy tube to be there x 4-6 weeks. 2- Lyomyomatous uterus: POD2 after hysterectomy - dc morphine - bowel regimen - cont oxycodone 3- R ovarian cyst: f/u as out pt advance to solids DVT PX ambulation dc in am , if able to urinate and tolerate diet Visit type - Emergency Visit Emergency Visit: Yes ED Registration Date: 02/10/18 Care time: The patient presented to the Emergency Department on the above date and was hospitalized for further evaluation of their emergent condition. - New Patient This patient is new to me today: No - Critical Care Critical Care patient: No
[2018-02-18] MEDS: HEPARIN NA (PORCINE) 5,000 UNITS/ML 1ML VIAL SQ SCH ×2 (06:19→13:47)
[2018-02-18] MEDS: AMOXICILLIN 500 MG CAPSULE (FP) PO SCH ×2 (06:20→13:47)
[2018-02-18 07:58] LABS: BASO % 0.7 % (0-2.0); EOS % 2.2 % (0-4.5); HEMOGLOBIN 10.1 GM/dL (10.7-15.3); LYMPH % 24.3 % (8-40); MCH 28.1 pg (25.7-33.7); MCHC 33.7 g/dl (32.0-36.0); MEAN CELL VOLUME 83.5 fl (80-96); MEAN PLT VOLUME 8.4 fl (7.5-11.1); NEUT % 63.8 % (42.8-82.8); PLATELET COUNT 284 K/MM3 (134-434); RBC 3.59 M/mm3 (3.60-5.2); RDW 15.6 % (11.6-15.6); WHITE BLOOD COUNT 10.1 K/mm3 (4.0-10.0)
[2018-02-18 08:18] LABS: ANION GAP 7 (8-16); BLOOD UREA NITROGEN 11 mg/dL (7-18); CALCIUM 8.2 mg/dL (8.5-10.1); CHLORIDE 102 mmol/L (98-107); CO2 30 mmol/L (21-32); CREATININE 0.4 mg/dL (0.55-1.02); GLUCOSE,RANDOM 96 mg/dL (74-106); POTASSIUM 3.8 mmol/L (3.5-5.1); SODIUM 139 mmol/L (136-145)
[2018-02-18 10:35] VITALS: BP 119/65; PULSE 87; TEMP 98.4
[2018-02-18] MEDS ORDERED: POLYETHYLENE GLYCOL 3350 119 GM BTL PO ONE (11:30)
[2018-02-18] MEDS ORDERED: PT OWN MED DRAWER 7, Y5N ONE (13:02)
--- NOTE | 2018-02-18 13:52 | PN ---
Teaching Attending Note Name of Resident: Christina Hawkins ATTENDING PHYSICIAN STATEMENT I saw and evaluated the patient. I reviewed the resident's note and discussed the case with the resident. I agree with the resident's findings and plan as documented. SUBJECTIVE: No fever or chills. has no abd pain a time of evaluation . HAd BM .no N/V OBJECTIVE: NAD CV: RRR Lungs: CTAB Abd: soft ,Minimal TTP in suprapubic area. L nephrostomy tube in flank with green urine in bag , NL BS . suprapubic surgical wound with ryan . no surrounding erythema Ext: no edema ASSESSMENT AND PLAN: 52 y/o lady with h/o prediabetes who presented with L flank pain and was found to have urosepsis and forniceal from an obstructing lyomyomatous uterus 1- Uro-sepsis: improved after L nephrostomy tube. - Cont amoxi day 3/7 - Nephrostomy tube to be there x 4-6 weeks. - f/u with uro 2- Lyomyomatous uterus: POD2 after hysterectomy - bowel regimen - cont with tylenol and ibuprofen at dc 3- R ovarian cyst: f/u as out pt dc home
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
--- NOTE | 2018-02-19 15:13 | PATH ---
Surgical Pathology Report Patient Name: MIREYA [facility]. Rec. #: [id number] /Age/Gender: 1965 (Age: 52) / F Account: [id number] Location: [facility]/SURG Taken: 02/15/2018 Received: 02/18/2018 Reported: 02/19/2018 Physicians: Chris Helton M.D. Specimen(s) Received UTERUS, CERVIX, WITH BILATERAL FALLOPIAN TUBES Clinical History Uterine fibroids Final Diagnosis UTERUS, CERVIX, BILATERAL FALLOPIAN TUBES, SALPINGECTOMY AND HYSTERECTOMY: LEIOMYOMATA. ADENOMYOSIS. ONE ENDOMETRIAL POLYP. PROLIFERATIVE ENDOMETRIUM. CERVIX WITH SQUAMOUS METAPLASIA. LEFT FALLOPIAN TUBE WITH PARATUBAL CYSTS. UNREMARKABLE RIGHT FALLOPIAN TUBE. Comments Rectum he Electronically Signed Robert Ochoa M.D. Gross Description Received in formalin labeled "uterus and cervix, bilateral fallopian tubes," is a 305 g uterus with an attached cervix and an attached right fallopian tube. The left fallopian tube is separately received within the same container. The specimen measures 12.5 cm from superior to inferior, 7.5 cm from left to right and 6.4 cm from anterior to posterior. The serosa is mayers-gee and smooth. The attached cervix measures 4 cm in length and averages 2.3 cm in diameter. The ectocervix is mayers-pink, smooth and glistening. The endocervix is unremarkable. The endometrial cavity measures 4.5 cm in length and 2 cm from cornu to cornu. The endometrium is red and averages 0.1 cm in thickness. There is a 2.8 x 0.5 x 0.3 cm mayers red endometrial polyp at the fundus. The myometrium is mayers-pink with whorled architecture, consistent with adenomyosis. The myometrium averages 3 cm in thickness. There are multiple intramural nodules, measuring up to 2.0 cm in greatest dimension. The attached right fallopian tube measures 4 cm in length. No fimbria are present. The outer surface is mayers-gee and smooth. Sectioning reveals an unremarkable lumen. The separately received left fimbriated fallopian tube measures 3.5 cm in length. The outer surface is gee purple with a 1.8 cm greatest dimension attached paratubal cyst. Sectioning of the fallopian tube reveals an unremarkable lumen. [employer] sections are submitted in 13 cassettes as follows: 1-anterior cervix; 2-posterior cervix; 3-uterine fundus with endometrial polyp; 7-6-gnvppqhm endomyometrium; 0-9-tqraqglmz endomyometrium; 4-91-dtyacednyu nodules; 11-cross sections of right fallopian tube; 12-left fallopian tube fimbria; 13-cross sections of left fallopian tube with paratubal cyst. 02/18/2018 [facility]02/18/2018
--- NOTE | 2018-02-26 07:18 | OP ---
DATE OF OPERATION: 02/15/2018 PREOPERATIVE DIAGNOSIS: Abdominal pain, leiomyomatous uterus, and obstructive uropathy. POSTOPERATIVE DIAGNOSIS: Abdominal pain, leiomyomatous uterus, and obstructive uropathy. PROCEDURE: Total abdominal hysterectomy, bilateral salpingectomy, cystoscopy. FINDINGS: Normal bilateral tubes and ovaries and leiomyomatous uterus approximately 10-12 weeks in size. SURGEON: Jenny Chen MD ENGINEERING ADMINISTRATOR: Monica Davis MD ANESTHESIA: General. ANESTHESIOLOGIST: Cricket Hassan MD SPECIMENS REMOVED: Cervix, uterus, fallopian tubes. ESTIMATED BLOOD LOSS: 200 mL. COMPLICATIONS: None. DISPOSITION: Stable to PACU. BRIEF HISTORY AND PROCEDURE: Patient is a 52-year-old female who was at [facility] on February 10, 2018. Patient had complaints of abdominal pain, and upon examination and imaging studies, was found to have obstructive uropathy on the left. After consultation with urology, a percutaneous nephrostomy tube was placed, and JEWELRY COATER was consulted secondary to a large suture thought likely to be the cause of obstructive uropathy. Notations were by Gynecology, and she requested permanent hysterectomy for the abdominal pain, the fibroids, and possibly to resolve the uropathy. Consents for the procedure were signed February 15, 2018, and the patient was taken back to the operating room. She was given general anesthesia and placed in the dorsal supine position on the table. She was prepped and draped in the usual sterile fashion, and a hard time-out was performed. A Pfannenstiel skin incision was created in the skin with the scalpel and carried to the underlying layer of rectus fascia with the Bovie. The rectus fascia was incised, and the incision was extended in the superolateral direction with the Bovie. The fascia was tented upwards and dissected off the underlying layer of rectus muscle with the Bovie. The rectus muscle was then retracted laterally, and the peritoneum was incised and dissected to allow for adequate room for the surgery. The uterus was identified and elevated out of the abdomen, which was noted to be approximately 10-12 weeks in size with several leiomyomas. Attention was then first turned to the right side, and the fallopian tube was elevated and dissected off its attachment to the ovary and mesosalpinx using the LigaSure device. Next, the utero-ovarian ligament was identified, clamped, ligated, and cut with the LigaSure device. Next, the round ligament on the right side was identified, clamped, cut, and ligated with the LigaSure device, and the bladder flap on the right side was started in order to dissect the bladder from the lower uterine segment and the cervix. Next, the uterine arteries on the right side were isolated and clamped, cut, and ligated in several passes till it reached the level of the uterosacral ligaments. Attention was then turned to left side, where the utero-ovarian anastomosis was identified, clamped, cut, and ligated with the LigaSure device. The round ligament was clamped, cut, and ligated with the LigaSure device, and the remaining portion of bladder was dissected off the lower uterine segment and the cervix. The uterine arteries were identified, isolated, clamped, cut, and ligated in several passes with the LigaSure device till it reached the level of the uterosacral ligaments. At this point, an incision was made in the anterior vagina, and this incision was continued in a 360-degree fashion until the uterus was dissected, and so the uterus and the cervix were detached from the vaginal cuff. A specimen which included the uterus, cervix, and right fallopian tube was passed off the table at this point. The vaginal cuff was reapproximated in a double-layer closure using 0 Vicryl suture in a running locked fashion. Attention was then turned over to the left fallopian tube, which was elevated and dissected off its attachment to the ovary using a LigaSure device and sent off to Pathology. All specimens were sent for permanent evaluation. All surgical pedicles were examined. Any bleeding was tied with a free tie for suture as needed to achieve hemostasis. When hemostasis was achieved, bilateral ureters were identified. The right one was identified. Minimal peristalsis was noted. The left lobe was noted not to be peristalsing either. However, the left nephrostomy tube was in place for the patient secondary to obstructive uropathy on that side. At this point, it was decided to perform a cystoscopy at the end of the procedure secondary to minimal visualization and ureter movement. Next, the peritoneum was closed with 2-0 chromic suture. Musculature was reapproximated in interrupted sutures. The fascia was reapproximated using 0 Vicryl in a running fashion. The subcutaneous tissue was irrigated and then reapproximated in a running fashion. The skin was reapproximated with ryan. At this point, attention was turned down below where the cystoscope was advanced into the bladder. The bladder was distended with approximately 300 mL of fluid. Methylene blue had been injected prior for visualization of the ureteral jets. No damage to the bladder was appreciated after 360-degree inspection of the bladder. At the trigone and at the dome, everything appeared to be within normal limits. Bilateral ureteral orifices were identified, and ureteral jet on the right side was appreciated. No ureteral jet on the left side was appreciated. Again, not unexpected secondary to a left nephrostomy tube to be one placed draining the kidney at this time. All instruments were removed from the patient and the vagina and bladder. Counts were reported to be correct. Boateng catheter was replaced after the cystoscopy, and the patient awoke in stable condition after the procedure. JENNY CHEN DO /[id number]
== END 2018-02-18 15:28 | disposition home or self-care (01) | DRG 710 ==
LOC: JER 12:09 → JERBED 18:14 → J7W 21:06 → JICU 02-11 20:04 → J7W 02-13 13:47
PROVIDERS: ADMIT Internal Medicine; ATTEND Internal Medicine
PROC: 0T9430Z Drainage of Left Kidney Pelvis with Drainage Device, Percutaneous Approach (ICD-10-PCS; 2018-02-11)
PROC: 0UT70ZZ Resection of Bilateral Fallopian Tubes, Open Approach (ICD-10-PCS; 2018-02-15)
PROC: 0TJB8ZZ Inspection of Bladder, Via Natural or Artificial Opening Endoscopic (ICD-10-PCS; 2018-02-15)
PROC: 0UT90ZZ Resection of Uterus, Open Approach (ICD-10-PCS; principal; 2018-02-15 15:00)
DX: A41.9 Sepsis, unspecified organism (principal); D25.9 Leiomyoma of uterus, unspecified; K59.00 Constipation, unspecified; E66.9 Obesity, unspecified; Z68.35 Body mass index [BMI] 35.0-35.9, adult; N83.201 Unspecified ovarian cyst, right side; N13.30 Unspecified hydronephrosis; N39.0 Urinary tract infection, site not specified; B96.20 Unspecified Escherichia coli [E. coli] as the cause of diseases classified elsewhere; E83.42 Hypomagnesemia; K21.9 Gastro-esophageal reflux disease without esophagitis; E83.39 Other disorders of phosphorus metabolism; D72.829 Elevated white blood cell count, unspecified; N80.0 Endometriosis of uterus; N84.0 Polyp of corpus uteri; N83.8 Other noninflammatory disorders of ovary, fallopian tube and broad ligament; Z68.36 Body mass index [BMI] 36.0-36.9, adult; N13.8 Other obstructive and reflux uropathy
CPT/HCPCS: 36415; 36600; 50432; 74019-TC-FY; 74177-TC; 76000-TC-FY; 76098-TC-FY; 76775-TC; 76830-TC; 76856-TC; 77002-TC-FY; 80048; 80053; 81003; 81015; 82040; 82803; 82962; 83036; 83605; 83690; 83735; 84100; 84703; 85025; 85027; 85610; 85730; 86850; 86900; 86901; 87040; 87086; 87186; 87899; 88307-TC; 93005; 93010; 94760; 97116-GP; 99285-25; A4358; C1729; C1769; J0131; J1644; J7030